=== PATIENT | female | born 1940 | race Two or more races ===

== ENCOUNTER → 2017-07-20 | Outpatient (CLI) | payer MEDICARE, OTHER ==
[~2017-07-20] MED LIST: LUTEIN; MONT10T; MULVITMINF; OMEP20ER; [UNRECOGNIZED DRUG - OTHER]; [UNRECOGNIZED DRUG - OTHER]
== END ==
LOC: LAB EV 09:44 → LAB SHORT 09:44
DX: N39.0 Urinary tract infection, site not specified (principal)
CPT/HCPCS: 87086

== ENCOUNTER → 2017-08-06 | Outpatient (CLI) | payer MEDICARE, OTHER | LOC: LAB SHORT 17:48 → LAB 17:48 | DX: N39.0 Urinary tract infection, site not specified (principal) | CPT/HCPCS: 87086 ==

== ENCOUNTER → 2017-10-29 | Outpatient (CLI) | payer MEDICARE, OTHER | END | disposition home or self-care (01) | LOC: LAB SRC 16:05 → LAB SHORT 16:05 | DX: N39.0 Urinary tract infection, site not specified (principal); M22.41 Chondromalacia patellae, right knee; R39.14 Feeling of incomplete bladder emptying | CPT/HCPCS: 87086 ==

== ENCOUNTER → 2017-11-09 | Outpatient (CLI) | payer MEDICARE, OTHER | LOC: LAB 17:49 → LAB SHORT 17:49 | DX: N39.0 Urinary tract infection, site not specified (principal); R35.0 Frequency of micturition; R39.14 Feeling of incomplete bladder emptying | CPT/HCPCS: 87077; 87086; 87186 ==

== ENCOUNTER → 2018-06-11 | Outpatient (CLI) | payer MEDICARE, OTHER ==
[~2018-06-11] MED LIST changes: +IRBE75; +MERIBIN5 MG; +OXYB5; +VOLTAREN100 GM
== END | disposition home or self-care (01) ==
LOC: LAB EV 11:18 → LAB SHORT 11:18
DX: N39.0 Urinary tract infection, site not specified (principal)
CPT/HCPCS: 87077; 87086; 87186

== ENCOUNTER → 2018-07-26 | Outpatient (CLI) | payer MEDICARE, OTHER ==
[~2018-07-26] MED LIST changes: +ASPI325 PO; +ASPI81CH PO; +ATOR40TA PO; +AZO CRANBERRY1 EAC1 PO; +Ativan0.5 MG PO; +BIOTIN5000 MCG PO; +CALCIUM CITRAT1 EAC6 PO; +CONEST.625 PO; +Chromium Pico400 MCG PO; +Colace100 MG PO; +Echinacea400 MG PO; +FISH OIL 1,2001 EACH PO; +GINKGO60 MG PO; +GLUCOSAMINE CH1 EAC1 PO; +Garlic1 EAC1 PO; +HAIR SKIN NAIL1 EACH PO; -IRBE75; +IRBE75 PO; +LIDO5TO TOP; +LUTEIN20 MG PO; -MULVITMINF; +Multivitamin1 EAC2 PO; -OMEP20ER; +OMEPRAZOLE20 MG PO; -OXYB5; +Oxybutynin Chlor5 M1 PO; +PAPAYA ENZYME1 EACH PO; +TURMERIC 500 M1 EACH PO; +VITAMIN B12-FO1 EACH PO; +VITAMIN D31000 UNI2 PO; -VOLTAREN100 GM; +VOLTAREN100 GM TOP; +Zocor20 MG PO
== END | disposition home or self-care (01) ==
LOC: LAB EV 12:16 → LAB SHORT 12:16
DX: N39.0 Urinary tract infection, site not specified (principal)
CPT/HCPCS: 87077; 87086; 87186

== ENCOUNTER 2018-08-03 13:48 | Observation (INO) | payer MEDICARE, OTHER ==
[~2018-08-03] VITALS: Ht 162.6 cm; Wt 85.0 kg
[~2018-08-03 13:48] MED LIST changes: -ASPI325 PO; -ASPI81CH PO; -ATOR40TA PO; -AZO CRANBERRY1 EAC1 PO; -Ativan0.5 MG PO; -BIOTIN5000 MCG PO; -CALCIUM CITRAT1 EAC6 PO; -CONEST.625 PO; -Chromium Pico400 MCG PO; -Colace100 MG PO; -Echinacea400 MG PO; -FISH OIL 1,2001 EACH PO; -GINKGO60 MG PO; -GLUCOSAMINE CH1 EAC1 PO; -Garlic1 EAC1 PO; -HAIR SKIN NAIL1 EACH PO; -LIDO5TO TOP; -LUTEIN20 MG PO; -PAPAYA ENZYME1 EACH PO; -TURMERIC 500 M1 EACH PO; -VITAMIN B12-FO1 EACH PO; -VITAMIN D31000 UNI2 PO; -Zocor20 MG PO
[2018-08-03 14:41] LABS: BASOPHILS ABSOLUTE AUTO 0.03 K/mm3 (0.00-0.23); BASOPHILS PERCENT AUTO 1 % (0-2); EOSINOPHILS ABSOLUTE AUTO 0.07 K/mm3 (0.00-0.68); EOSINOPHILS PERCENT AUTO 1 % (0-6); Hematocrit 36.6 % (33.0-51.0); Hemoglobin 12.2 g/dL (11.5-16.0); IMMATURE GRAN ABSOLUTE AUTO 0.02 K/mm3 (0.00-0.10); IMMATURE GRAN PERCENT AUTO 0 % (0-1); LYMPHOCYTES ABSOLUTE AUTO 1.96 K/mm3 (0.84-5.20); LYMPHOCYTES PERCENT AUTO 35 % (21-46); MONOCYTES PERCENT AUTO 9 % (4-13); Mean Corpuscular HGB 29.7 pg (26.0-34.0); Mean Corpuscular HGB Conc 33.3 g/dL (31.5-36.5); Mean Corpuscular Volume 89 fL (80-100); NEUTROPHILS ABSOLUTE AUTO 3.06 K/mm3 (1.96-9.15); NEUTROPHILS PERCENT AUTO 54 % (41-73); Platelet Count 279 K/mm3 (150-400); RDW Coefficient Variation 12.9 % (11.7-14.2); RDW Standard Deviation 42.3 fL (35.1-46.3); Red Blood Cell Count 4.11 M/mm3 (3.80-5.20); White Blood Cell Count 5.64 K/mm3 (4.00-11.30)
[2018-08-03 15:06] LABS: Alanine Aminotransfer (ALT/SGP 13 U/L (12-78); Albumin, Blood 3.5 g/dL (3.4-5.0); Alk Phos 67 U/L (50-136); Anion Gap 7 mmol/L (6-16); Aspartate Aminotrans (AST/SGOT 19 U/L (12-37); Bilirubin, Total 0.5 mg/dL (0.1-1.0); Blood Urea Nitrogen 9 mg/dL (8-24); Bun/Creatinine Ratio 15.5 (12.0-20.0); CO2, Blood 25 mmol/L (21-32); Chloride, Blood 98 mmol/L (98-108); Creatinine, Blood 0.58 mg/dL (0.40-1.00); Globulin, Blood 3.5 g/dL (2.2-4.0); Glomerular Filtration Rate >60 (60-); Glucose, Blood 117 mg/dL (70-99); Potassium, Blood 3.5 mmol/L (3.5-5.5); Sodium, Blood 130 mmol/L (136-145)
[2018-08-03 16:46] LABS: Source, Urine Clean Catch
[2018-08-03 17:04] LABS: Bilirubin, Urine Neg (Neg); Blood, Urine Neg (Neg); Glucose Qualitative, Urine Neg (Neg); Ketones, Urine Neg (Neg); Leukocyte Esterase, Urine Neg (Neg); Nitrite, Urine Neg (Neg); Protein, Urine Neg (Neg); Urobilinogen, Urine NORM (Normal)
[2018-08-03 17:09] LABS: Appearance, Urine Clear (Clear); Color, Urine Yellow (P-Yellow)
[2018-08-03 17:17] LABS: U Amphetamine Screen Not Detected; U Barbituate Screen Not Detected; U Benzodiazapine Screen Not Detected; U Buprenorphine Screen Not Detected; U Cannabinoids Screen Not Detected; U Cocaine Screen Not Detected; U Methadone Screen Not Detected; U Methamphetamine Screen Not Detected; U Opiates Screen Not Detected; U Oxycodone Screen Not Detected; U Phencyclidine Screen Not Detected; U Propoxyphene Screen Not Detected
[2018-08-03 18:19] LABS: Thyroid Stimulating Hormone 1.92 uIU/mL (0.360-4.800)
[2018-08-04 05:57] LABS: Anion Gap 6 mmol/L (6-16); Blood Urea Nitrogen 11 mg/dL (8-24); Bun/Creatinine Ratio 18.9 (12.0-20.0); CHOL/HDL RATIO 2.9; CO2, Blood 27 mmol/L (21-32); Calcium, Blood 8.5 mg/dL (8.5-10.1); Chloride, Blood 104 mmol/L (98-108); Cholesterol 233 mg/dL (50-200); Creatinine, Blood 0.58 mg/dL (0.40-1.00); Glomerular Filtration Rate >60 (60-); Glucose, Blood 91 mg/dL (70-99); HDL Cholesterol 79 mg/dL (>39); LDL/HDL RATIO 1.8; Low Density Lipoprotein Chol 141 mg/dL (0-110); Potassium, Blood 3.9 mmol/L (3.5-5.5); Sodium, Blood 137 mmol/L (136-145); Triglycerides 63 mg/dL (30-160); Very Low Density Lipoprot Chol 12 mg/dL (6-32)
--- NOTE | 2018-08-04 06:03 | NUR ---
SHIFT SUMMARY PT ADMITTED FOR TIA SYMPTOMS. PT FAMILY PRESENT UPON ARRIVAL TO UNIT. PT ALERT AND ORIENTED, DENIES ANY SYMPTOMS UPON ARRIVAL. STATES NUMBNESS ON LEFT SIDE IS NOW GONE. NEURO CHECKS INTACT. TELEMETRY ON AND READS NSR WITH 1ST DEGREE BLOCK. PT UP TO BSC WITH SBA, CONTINENT OF BOWEL AND BLADDER. PT HAS MACULAR DEGENERATION WHICH MAKES IT DIFFICULT FOR HER TO SEE THINGS. NO ACUTE EVENTS NOTED DURING THE NIGHT, WILL CONTINUE TO MONITOR.
--- NOTE | 2018-08-04 09:00 | NUR ---
PT A/O. PLEASANT, TALKING, JOKING. HUSB AND GRAND-DAUGHTER IN ROOM. DENIES PAIN. NEURO CHECKS: GIPS =, LISA, ARM STRENGTH =, ALTHOUGH ARMS PRESENT WEAK. PT STATES NORMAL. LEGS = STRENGTH. NO FACIAL DROOP NOTED, H/R REG, NO MURMER NOTED. PER TELE: NSR AT 77. LUNGS CLEAR, REWP EASY, UNLABORED. ON R.A. BT X4 LAST BM YEST. NORMAL. VOIDS PER BATHROOM. SBA. BED IN LOW POSITION, CALL LITE IN REAC, CALLS APPROP
--- NOTE | 2018-08-04 16:25 | NUR ---
CALLED DR KIDD RE BP. 161/76. PT TAKES AVAPRO 75 MG PO DAILY AT HOME. NONE ON EMAR. LMTC
--- NOTE | 2018-08-04 16:37 | NUR ---
DR DELROY YANG. ORDERS GIVEN. WILL DC TODAY
[2018-08-04] MEDS ORDERED: Zocor20 MG PO (17:34)
[2018-08-04] MEDS ORDERED: ASPI325 PO (17:34)
--- NOTE | 2018-08-04 18:18 | NUR ---
DISCHARGE REVIEWED WITH PT AND . IV PULLED INTACT. TELE REMOVED AND SENT TO PCU. MEDS FAXED TO [facility]. PT VERBALIZED UNDERSTANDING MEDS AND INSTRUCTIONS. PT WHEELED TO DOOR BY VALARIE REGALADO.
[2018-11-02] MEDS ORDERED: VITAMIN B12-FO1 EACH PO (14:25)
[2018-11-02] MEDS ORDERED: Echinacea400 MG PO (14:25)
[2018-11-02] MEDS ORDERED: VITAMIN D31000 UNI2 PO (14:26)
[2018-11-02] MEDS ORDERED: PAPAYA ENZYME1 EACH PO (14:26)
[2018-11-02] MEDS ORDERED: CONEST.625 PO (14:26)
[2018-11-02] MEDS ORDERED: HAIR SKIN NAIL1 EACH PO (14:26)
[2018-11-02] MEDS ORDERED: FISH OIL 1,2001 EACH PO (14:27)
[2018-11-02] MEDS ORDERED: BIOTIN5000 MCG PO (14:27)
[2018-11-02] MEDS ORDERED: LIDO5TO TOP (14:27)
[2018-11-02] MEDS ORDERED: AZO CRANBERRY1 EAC1 PO (14:28)
[2018-11-02] MEDS ORDERED: Chromium Pico400 MCG PO (14:28)
[2018-11-02] MEDS ORDERED: Garlic1 EAC1 PO (14:29)
[2018-11-02] MEDS ORDERED: LUTEIN20 MG PO (14:29)
[2018-11-02] MEDS ORDERED: GINKGO60 MG PO (14:29)
[2018-11-02] MEDS ORDERED: TURMERIC 500 M1 EACH PO (14:29)
[2018-11-02] MEDS ORDERED: CALCIUM CITRAT1 EAC6 PO (14:30)
[2018-11-02] MEDS ORDERED: GLUCOSAMINE CH1 EAC1 PO (14:31)
[2018-11-02] MEDS ORDERED: Colace100 MG PO (14:32)
== END 2018-08-04 18:31 | disposition home or self-care (01) ==
LOC: ER 13:48 → MEDS 13:49 → ENPENDDIS 08-04 17:10 → MEDS 08-04 18:31
PROVIDERS: Emergency Medicine; Nurse Practitioner Acute Care; ADMIT Internal Medicine
DX: R29.898 Other symptoms and signs involving the musculoskeletal system (principal); R20.0 Anesthesia of skin; E87.1 Hypo-osmolality and hyponatremia; I10 Essential (primary) hypertension; M19.90 Unspecified osteoarthritis, unspecified site; K21.9 Gastro-esophageal reflux disease without esophagitis; I73.9 Peripheral vascular disease, unspecified; E78.5 Hyperlipidemia, unspecified; M17.11 Unilateral primary osteoarthritis, right knee; Z88.5 Allergy status to narcotic agent; Z79.899 Other long term (current) drug therapy; Z79.82 Long term (current) use of aspirin
CPT/HCPCS: 36415; 70450; 70496; 70498; 80048; 80053; 80061; 81003; 82607; 83735; 84443; 85025; 93005; 93010; 93306; 96361; 96372; 96374-59; 97162; 97165; 99285-25; G0378; J1650; J2060; J7030; Q9967

== ENCOUNTER 2018-08-06 07:51 | Emergency (ER) | payer MEDICARE, OTHER ==
[~2018-08-06] VITALS: Ht 160 cm; Wt 81.2 kg
[~2018-08-06 07:51] MED LIST changes: +ASPI325 PO; +Zocor20 MG PO
[2018-08-06] MEDS ORDERED: Ativan0.5 MG PO (08:43)
[2018-11-02] MEDS ORDERED: Echinacea400 MG PO (14:25)
[2018-11-02] MEDS ORDERED: VITAMIN B12-FO1 EACH PO (14:25)
[2018-11-02] MEDS ORDERED: VITAMIN D31000 UNI2 PO (14:26)
[2018-11-02] MEDS ORDERED: HAIR SKIN NAIL1 EACH PO (14:26)
[2018-11-02] MEDS ORDERED: PAPAYA ENZYME1 EACH PO (14:26)
[2018-11-02] MEDS ORDERED: CONEST.625 PO (14:26)
[2018-11-02] MEDS ORDERED: LIDO5TO TOP (14:27)
[2018-11-02] MEDS ORDERED: FISH OIL 1,2001 EACH PO (14:27)
[2018-11-02] MEDS ORDERED: BIOTIN5000 MCG PO (14:27)
[2018-11-02] MEDS ORDERED: AZO CRANBERRY1 EAC1 PO (14:28)
[2018-11-02] MEDS ORDERED: Chromium Pico400 MCG PO (14:28)
[2018-11-02] MEDS ORDERED: Garlic1 EAC1 PO (14:29)
[2018-11-02] MEDS ORDERED: GINKGO60 MG PO (14:29)
[2018-11-02] MEDS ORDERED: TURMERIC 500 M1 EACH PO (14:29)
[2018-11-02] MEDS ORDERED: LUTEIN20 MG PO (14:29)
[2018-11-02] MEDS ORDERED: CALCIUM CITRAT1 EAC6 PO (14:30)
[2018-11-02] MEDS ORDERED: GLUCOSAMINE CH1 EAC1 PO (14:31)
[2018-11-02] MEDS ORDERED: Colace100 MG PO (14:32)
== END 2018-08-06 10:44 | disposition home or self-care (01) ==
LOC: ER 07:51
DX: F41.9 Anxiety disorder, unspecified (principal); Z88.5 Allergy status to narcotic agent; Z79.899 Other long term (current) drug therapy; Z79.82 Long term (current) use of aspirin; E78.5 Hyperlipidemia, unspecified; I10 Essential (primary) hypertension; K21.9 Gastro-esophageal reflux disease without esophagitis
CPT/HCPCS: 36415; 93005; 93010; 99283-25

== ENCOUNTER → 2018-08-25 | Outpatient (CLI) | payer MEDICARE, OTHER ==
[~2018-08-25] MED LIST changes: +ASPI81CH PO; +ATOR40TA PO; +AZO CRANBERRY1 EAC1 PO; +Ativan0.5 MG PO; +BIOTIN5000 MCG PO; +CALCIUM CITRAT1 EAC6 PO; +CONEST.625 PO; +Chromium Pico400 MCG PO; +Colace100 MG PO; +Echinacea400 MG PO; +FISH OIL 1,2001 EACH PO; +GINKGO60 MG PO; +GLUCOSAMINE CH1 EAC1 PO; +Garlic1 EAC1 PO; +HAIR SKIN NAIL1 EACH PO; +LIDO5TO TOP; +LUTEIN20 MG PO; +PAPAYA ENZYME1 EACH PO; +TURMERIC 500 M1 EACH PO; +VITAMIN B12-FO1 EACH PO; +VITAMIN D31000 UNI2 PO
[2018-08-25 19:14] LABS: Source, Urine Clean Catch
[2018-08-25 19:21] LABS: Bilirubin, Urine Neg (Neg); Blood, Urine Neg (Neg); Glucose Qualitative, Urine Neg (Neg); Ketones, Urine Neg (Neg); Leukocyte Esterase, Urine 3+ (Neg); Nitrite, Urine Neg (Neg); Protein, Urine Neg (Neg); Urobilinogen, Urine NORM (Normal)
[2018-08-25 19:44] LABS: Appearance, Urine Hazy (Clear); Color, Urine Pale Yellow (P-Yellow)
[2018-08-25 19:45] LABS: Red Blood Cells, Urine 0-2 /hpf (0-2); Squamous Epithelial Cells Few /hpf (Few)
[2018-08-25 19:46] LABS: Bacteria Few /hpf
== END | disposition home or self-care (01) ==
LOC: LAB 17:00 → LAB SHORT 17:00
PROVIDERS: Registered Nurse
DX: I69.354 Hemiplegia and hemiparesis following cerebral infarction affecting left non-dominant side (principal); K21.9 Gastro-esophageal reflux disease without esophagitis; M19.90 Unspecified osteoarthritis, unspecified site; H35.30 Unspecified macular degeneration; I10 Essential (primary) hypertension; Z79.82 Long term (current) use of aspirin
CPT/HCPCS: 81001; 87086

== ENCOUNTER → 2018-08-27 | Outpatient (CLI) | payer MEDICARE, OTHER ==
[2018-08-27 13:14] LABS: Bilirubin, Urine Neg (Neg); Blood, Urine 4+ (Neg); Glucose Qualitative, Urine Neg (Neg); Ketones, Urine Neg (Neg); Leukocyte Esterase, Urine 3+ (Neg); Nitrite, Urine Neg (Neg); Protein, Urine 1+ (Neg); Specific Gravity, Urine 1.015 (1.003-1.022); Urobilinogen, Urine NORM (Normal)
[2018-08-27 14:21] LABS: Appearance, Urine Hazy (Clear); Color, Urine Yellow (P-Yellow)
[2018-08-27 14:22] LABS: Bacteria Mod /hpf; Squamous Epithelial Cells Not Seen /hpf (Few); White Blood Cells, Urine TNTC /hpf (0-5)
== END | disposition home or self-care (01) ==
LOC: LAB SHORT 11:33 → LAB SRC 11:33
PROVIDERS: Registered Nurse
DX: N39.0 Urinary tract infection, site not specified (principal)
CPT/HCPCS: 81001; 87086

== ENCOUNTER 2018-09-03 10:14 | Emergency (ER) | payer MEDICARE, OTHER ==
[~2018-09-03] VITALS: Ht 162.6 cm; Wt 81.7 kg
[~2018-09-03 10:14] MED LIST changes: -ASPI81CH PO; -ATOR40TA PO; -AZO CRANBERRY1 EAC1 PO; -BIOTIN5000 MCG PO; -CALCIUM CITRAT1 EAC6 PO; -CONEST.625 PO; -Chromium Pico400 MCG PO; -Colace100 MG PO; -Echinacea400 MG PO; -FISH OIL 1,2001 EACH PO; -GINKGO60 MG PO; -GLUCOSAMINE CH1 EAC1 PO; -Garlic1 EAC1 PO; -HAIR SKIN NAIL1 EACH PO; -LIDO5TO TOP; -LUTEIN20 MG PO; -PAPAYA ENZYME1 EACH PO; -TURMERIC 500 M1 EACH PO; -VITAMIN B12-FO1 EACH PO; -VITAMIN D31000 UNI2 PO
[2018-09-03 11:10] LABS: Source, Urine Catheter
[2018-09-03 11:13] LABS: Bilirubin, Urine Neg (Neg); Blood, Urine Neg (Neg); Glucose Qualitative, Urine Neg (Neg); Ketones, Urine Neg (Neg); Leukocyte Esterase, Urine Neg (Neg); Nitrite, Urine Neg (Neg); Protein, Urine Neg (Neg); Urobilinogen, Urine NORM (Normal)
[2018-09-03 11:17] LABS: Appearance, Urine Clear (Clear); Color, Urine Yellow (P-Yellow)
[2018-09-03 11:29] LABS: BASOPHILS ABSOLUTE AUTO 0.04 K/mm3 (0.00-0.23); BASOPHILS PERCENT AUTO 1 % (0-2); EOSINOPHILS ABSOLUTE AUTO 0.06 K/mm3 (0.00-0.68); EOSINOPHILS PERCENT AUTO 1 % (0-6); Hematocrit 38.6 % (33.0-51.0); IMMATURE GRAN ABSOLUTE AUTO 0.01 K/mm3 (0.00-0.10); IMMATURE GRAN PERCENT AUTO 0 % (0-1); LYMPHOCYTES ABSOLUTE AUTO 1.72 K/mm3 (0.84-5.20); LYMPHOCYTES PERCENT AUTO 24 % (21-46); MONOCYTES ABSOLUTE AUTO 0.54 K/mm3 (0.16-1.47); MONOCYTES PERCENT AUTO 8 % (4-13); Mean Corpuscular HGB 30.2 pg (26.0-34.0); Mean Corpuscular HGB Conc 33.7 g/dL (31.5-36.5); Mean Corpuscular Volume 90 fL (80-100); NEUTROPHILS ABSOLUTE AUTO 4.72 K/mm3 (1.96-9.15); NEUTROPHILS PERCENT AUTO 67 % (41-73); Platelet Count 260 K/mm3 (150-400); RDW Coefficient Variation 12.5 % (11.7-14.2); RDW Standard Deviation 41.6 fL (35.1-46.3); Red Blood Cell Count 4.31 M/mm3 (3.80-5.20); White Blood Cell Count 7.09 K/mm3 (4.00-11.30)
[2018-09-03 11:50] LABS: Alanine Aminotransfer (ALT/SGP 25 U/L (12-78); Albumin, Blood 3.5 g/dL (3.4-5.0); Albumin/Globulin Ratio 0.9 (0.8-1.8); Alk Phos 81 U/L (50-136); Anion Gap 9 mmol/L (6-16); Aspartate Aminotrans (AST/SGOT 14 U/L (12-37); Bilirubin, Total 0.3 mg/dL (0.1-1.0); Blood Urea Nitrogen 12 mg/dL (8-24); Bun/Creatinine Ratio 21.4 (12.0-20.0); CO2, Blood 25 mmol/L (21-32); Calcium, Blood 9.2 mg/dL (8.5-10.1); Chloride, Blood 101 mmol/L (98-108); Creatinine, Blood 0.56 mg/dL (0.40-1.00); Globulin, Blood 3.9 g/dL (2.2-4.0); Glomerular Filtration Rate >60 (60-); Glucose, Blood 107 mg/dL (70-99); Potassium, Blood 3.5 mmol/L (3.5-5.5); Sodium, Blood 135 mmol/L (136-145); Total Protein, Blood 7.4 g/dL (6.4-8.2)
[2018-11-02] MEDS ORDERED: VITAMIN B12-FO1 EACH PO (14:25)
[2018-11-02] MEDS ORDERED: Echinacea400 MG PO (14:25)
[2018-11-02] MEDS ORDERED: VITAMIN D31000 UNI2 PO (14:26)
[2018-11-02] MEDS ORDERED: HAIR SKIN NAIL1 EACH PO (14:26)
[2018-11-02] MEDS ORDERED: CONEST.625 PO (14:26)
[2018-11-02] MEDS ORDERED: PAPAYA ENZYME1 EACH PO (14:26)
[2018-11-02] MEDS ORDERED: FISH OIL 1,2001 EACH PO (14:27)
[2018-11-02] MEDS ORDERED: BIOTIN5000 MCG PO (14:27)
[2018-11-02] MEDS ORDERED: LIDO5TO TOP (14:27)
[2018-11-02] MEDS ORDERED: AZO CRANBERRY1 EAC1 PO (14:28)
[2018-11-02] MEDS ORDERED: Chromium Pico400 MCG PO (14:28)
[2018-11-02] MEDS ORDERED: GINKGO60 MG PO (14:29)
[2018-11-02] MEDS ORDERED: LUTEIN20 MG PO (14:29)
[2018-11-02] MEDS ORDERED: TURMERIC 500 M1 EACH PO (14:29)
[2018-11-02] MEDS ORDERED: Garlic1 EAC1 PO (14:29)
[2018-11-02] MEDS ORDERED: CALCIUM CITRAT1 EAC6 PO (14:30)
[2018-11-02] MEDS ORDERED: GLUCOSAMINE CH1 EAC1 PO (14:31)
[2018-11-02] MEDS ORDERED: Colace100 MG PO (14:32)
== END 2018-09-03 13:08 | disposition home or self-care (01) ==
LOC: ER 10:14
PROVIDERS: Internal Medicine
DX: F43.9 Reaction to severe stress, unspecified (principal); Z88.5 Allergy status to narcotic agent; Z79.899 Other long term (current) drug therapy; Z79.82 Long term (current) use of aspirin; E78.5 Hyperlipidemia, unspecified; I10 Essential (primary) hypertension; K21.9 Gastro-esophageal reflux disease without esophagitis; Z87.891 Personal history of nicotine dependence
CPT/HCPCS: 36415; 80053; 81003; 85025; 99283

== ENCOUNTER 2018-11-04 07:41 | Day surgery (SDC) | payer MEDICARE, OTHER ==
[~2018-11-04] VITALS: Ht 162.6 cm; Wt 82.3 kg
[~2018-11-04 07:41] MED LIST changes: +AZO CRANBERRY1 EAC1 PO; +BIOTIN5000 MCG PO; +CALCIUM CITRAT1 EAC6 PO; +CONEST.625 PO; +Chromium Pico400 MCG PO; +Colace100 MG PO; +Echinacea400 MG PO; +FISH OIL 1,2001 EACH PO; +GINKGO60 MG PO; +GLUCOSAMINE CH1 EAC1 PO; +Garlic1 EAC1 PO; +HAIR SKIN NAIL1 EACH PO; +LIDO5TO TOP; +LUTEIN20 MG PO; +PAPAYA ENZYME1 EACH PO; +TURMERIC 500 M1 EACH PO; +VITAMIN B12-FO1 EACH PO; +VITAMIN D31000 UNI2 PO
[2018-11-04] MEDS ORDERED: ASPI81CH PO (08:59)
[2018-11-04] MEDS ORDERED: ATOR40TA PO (08:59)
--- NOTE | 2018-11-04 10:43 | NUR ---
PT RLE WRAPPED AND COMPRESSION SOCK ON. PT AMBULATES TO RESTROOM WITH STEADY GAIT. PT DENIES PAIN, AT BEDSIDE TO DISCUSS DISCHARGE INSTRUCTIONS. PT AND VERBALIZED UNDERSTANDING OF D/C INSTRUCTIONS. IV REMOVED FROM RAC WITH CATH INTACT, PRESSURE DRESSING APPLIED. VSS. PT ENCOURAGED TO FOLLOW UP OR CALL DOCTORS OFFICE IF NEEDED. PT TAKEN OUT TO PRIVATE VEHICLE VIA W/C WITH NADN.
== END 2018-11-04 14:28 | disposition home or self-care (01) ==
LOC: MHTC 07:41
DX: I87.2 Venous insufficiency (chronic) (peripheral) (principal); I10 Essential (primary) hypertension; E78.5 Hyperlipidemia, unspecified; J45.909 Unspecified asthma, uncomplicated; Z79.899 Other long term (current) drug therapy; Z87.891 Personal history of nicotine dependence; Z88.5 Allergy status to narcotic agent; Z88.1 Allergy status to other antibiotic agents
CPT/HCPCS: 36465; 36466; 36475; 99152; 99153; C1769; C1894; J1644; J2250; J3010; J7040

== ENCOUNTER → 2019-01-20 | Outpatient (CLI) | payer MEDICARE, OTHER ==
[~2019-01-20] MED LIST changes: +ASPI81CH PO; +ATOR40TA PO
== END | disposition home or self-care (01) ==
LOC: LAB SHORT 11:09 → LAB EV 11:09
DX: N39.0 Urinary tract infection, site not specified (principal)
CPT/HCPCS: 87086

== ENCOUNTER → 2019-02-28 | Outpatient (CLI) | payer MEDICARE, OTHER | END | disposition home or self-care (01) | LOC: LAB EV 10:07 → LAB SHORT 10:07 | DX: N39.0 Urinary tract infection, site not specified (principal) | CPT/HCPCS: 87086 ==

== ENCOUNTER → 2019-04-11 | Outpatient (CLI) | payer MEDICARE, OTHER | LOC: LAB SHORT 13:11 → LAB SRC 13:11 | DX: R30.0 Dysuria (principal); R35.0 Frequency of micturition | CPT/HCPCS: 87077; 87086; 87186 ==

== ENCOUNTER → 2019-06-04 | Outpatient (CLI) | payer MEDICARE, OTHER | END | disposition home or self-care (01) | LOC: LAB EV 17:03 → LAB SHORT 17:03 | DX: N39.0 Urinary tract infection, site not specified (principal) | CPT/HCPCS: 87077; 87086; 87186 ==

== ENCOUNTER → 2019-06-23 | Outpatient (CLI) | payer MEDICARE, OTHER | END | disposition home or self-care (01) | LOC: LAB 14:34 → LAB SHORT 14:34 | DX: R30.0 Dysuria (principal) | CPT/HCPCS: 87077; 87086; 87186 ==

== ENCOUNTER → 2019-07-10 | Outpatient (CLI) | payer MEDICARE, OTHER | LOC: LAB SHORT 13:24 → LAB EV 13:24 | DX: N39.0 Urinary tract infection, site not specified (principal) | CPT/HCPCS: 87077; 87086; 87186 ==

== ENCOUNTER → 2019-07-31 | Outpatient (CLI) | payer MEDICARE, OTHER | END | disposition home or self-care (01) | LOC: LAB EV 09:29 → LAB SHORT 09:29 | DX: N39.0 Urinary tract infection, site not specified (principal) | CPT/HCPCS: 87077; 87086; 87186 ==

== ENCOUNTER → 2019-08-11 | Outpatient (CLI) | payer MEDICARE, OTHER | END | disposition home or self-care (01) | LOC: LAB SHORT 10:37 → LAB EV 10:37 | DX: N39.0 Urinary tract infection, site not specified (principal) | CPT/HCPCS: 87077; 87086; 87186 ==

== ENCOUNTER → 2019-08-23 | Outpatient (CLI) | payer MEDICARE, OTHER | END | disposition home or self-care (01) | LOC: LAB EV 14:48 → LAB SHORT 14:48 | DX: N39.0 Urinary tract infection, site not specified (principal) | CPT/HCPCS: 87077; 87086; 87186 ==

== ENCOUNTER → 2019-09-02 | Outpatient (CLI) | payer MEDICARE, OTHER | LOC: LAB EV 10:14 → LAB SHORT 10:14 | DX: R30.9 Painful micturition, unspecified (principal) | CPT/HCPCS: 87086; 87210 ==

== ENCOUNTER 2019-10-31 08:23 | Day surgery (SDC) | payer MEDICARE, OTHER ==
[~2019-10-31] VITALS: Ht 172.7 cm; Wt 84.6 kg
[~2019-10-31 08:23] MED LIST changes: +ELIQUIS5 MG PO
[2019-10-31] MEDS ORDERED: IRBE75 (09:06)
--- NOTE | 2019-10-31 09:49 | NUR ---
10/31/19 0949 Anna Joseph PT DID NOT HOLD ELIQUIS FOR 2 DAYS PRIOR TO PROCEDURE INSTRUCTED BY DR. DUBON. SPOKE TO PT AND TO CLARIFY LAST DOSE. SPOKE WITH AND PT ABOUT NEED TO CANCEL PROCEDURE D/T BLEEDING RISK. ALSO SPOKE WITH DAUGHTER ABOUT CANCELLING PROCEDURE. IV REMOVED.
== END 2019-10-31 10:00 | disposition home or self-care (01) ==
LOC: ORSCSDS 08:23
DX: K21.9 Gastro-esophageal reflux disease without esophagitis (principal); R13.10 Dysphagia, unspecified; Z12.11 Encounter for screening for malignant neoplasm of colon; Z53.9 Procedure and treatment not carried out, unspecified reason
CPT/HCPCS: J2704; J7120

== ENCOUNTER 2019-11-18 13:04 | Observation (INO) | payer MEDICARE, OTHER ==
[~2019-11-18] VITALS: Ht 170.2 cm; Wt 84.4 kg
[~2019-11-18 13:04] MED LIST changes: -ATOR40TA PO; -ELIQUIS5 MG PO; +IRBE75; -IRBE75 PO
[2019-11-18] MEDS ORDERED: HYDCHL25 PO (13:29)
[2019-11-18 13:40] LABS: BASOPHILS ABSOLUTE AUTO 0.06 K/mm3 (0.00-0.23); BASOPHILS PERCENT AUTO 1 % (0-2); EOSINOPHILS ABSOLUTE AUTO 0.07 K/mm3 (0.00-0.68); EOSINOPHILS PERCENT AUTO 1 % (0-6); Hematocrit 38.6 % (33.0-51.0); Hemoglobin 13.2 g/dL (11.5-16.0); IMMATURE GRAN ABSOLUTE AUTO 0.01 K/mm3 (0.00-0.10); IMMATURE GRAN PERCENT AUTO 0 % (0-1); LYMPHOCYTES ABSOLUTE AUTO 2.15 K/mm3 (0.84-5.20); LYMPHOCYTES PERCENT AUTO 31 % (21-46); MONOCYTES ABSOLUTE AUTO 0.73 K/mm3 (0.16-1.47); MONOCYTES PERCENT AUTO 11 % (4-13); Mean Corpuscular HGB 29.9 pg (26.0-34.0); Mean Corpuscular HGB Conc 34.2 g/dL (31.5-36.5); Mean Corpuscular Volume 88 fL (80-100); Mean Platelet Volume 8.7 fL (9.1-12.4); NEUTROPHILS ABSOLUTE AUTO 3.86 K/mm3 (1.96-9.15); NEUTROPHILS PERCENT AUTO 56 % (41-73); Platelet Count 316 K/mm3 (150-400); RDW Coefficient Variation 12.5 % (11.7-14.2); RDW Standard Deviation 40.2 fL (35.1-46.3); Red Blood Cell Count 4.41 M/mm3 (3.80-5.20); White Blood Cell Count 6.88 K/mm3 (4.00-11.30)
[2019-11-18 14:06] LABS: Alanine Aminotransfer (ALT/SGP 25 U/L (12-78); Albumin, Blood 3.9 g/dL (3.4-5.0); Alk Phos 89 U/L (50-136); Anion Gap 8 mmol/L (6-16); Aspartate Aminotrans (AST/SGOT 24 U/L (12-37); Bilirubin, Total 0.4 mg/dL (0.1-1.0); Blood Urea Nitrogen 9 mg/dL (8-24); Bun/Creatinine Ratio 14.6 (12.0-20.0); CO2, Blood 25 mmol/L (21-32); Calcium, Blood 9.6 mg/dL (8.5-10.1); Chloride, Blood 99 mmol/L (98-108); Creatinine, Blood 0.62 mg/dL (0.40-1.00); Globulin, Blood 3.9 g/dL (2.2-4.0); Glomerular Filtration Rate >60 (60-); Glucose, Blood 120 mg/dL (70-99); Potassium, Blood 3.7 mmol/L (3.5-5.5); Sodium, Blood 132 mmol/L (136-145); Total Protein, Blood 7.8 g/dL (6.4-8.2); Troponin I <0.015 ng/mL (0.000-0.040)
[2019-11-18] MEDS ORDERED: ATOR40TA PO (17:44)
[2019-11-18] MEDS ORDERED: NYSTATIN15 GM TOP (17:45)
[2019-11-18] MEDS ORDERED: ELIQUIS5 MG PO (17:45)
[2019-11-18] MEDS ORDERED: Nitrofurantoin100 M1 PO (17:47)
[2019-11-18] MEDS ORDERED: IRBESARTAN-HCT1 EAC3 PO (17:48)
[2019-11-18] MEDS ORDERED: OMEPRAZOLE MAGN20 MG PO (21:35)
[2019-11-19 03:43] LABS: BASOPHILS ABSOLUTE AUTO 0.06 K/mm3 (0.00-0.23); BASOPHILS PERCENT AUTO 1 % (0-2); EOSINOPHILS ABSOLUTE AUTO 0.19 K/mm3 (0.00-0.68); EOSINOPHILS PERCENT AUTO 3 % (0-6); Hemoglobin 12.7 g/dL (11.5-16.0); IMMATURE GRAN ABSOLUTE AUTO 0.01 K/mm3 (0.00-0.10); IMMATURE GRAN PERCENT AUTO 0 % (0-1); LYMPHOCYTES ABSOLUTE AUTO 1.69 K/mm3 (0.84-5.20); LYMPHOCYTES PERCENT AUTO 31 % (21-46); MONOCYTES ABSOLUTE AUTO 0.67 K/mm3 (0.16-1.47); MONOCYTES PERCENT AUTO 12 % (4-13); Mean Corpuscular HGB 29.6 pg (26.0-34.0); Mean Corpuscular HGB Conc 33.4 g/dL (31.5-36.5); Mean Corpuscular Volume 89 fL (80-100); Mean Platelet Volume 8.8 fL (9.1-12.4); NEUTROPHILS ABSOLUTE AUTO 2.93 K/mm3 (1.96-9.15); NEUTROPHILS PERCENT AUTO 53 % (41-73); Platelet Count 273 K/mm3 (150-400); RDW Coefficient Variation 12.8 % (11.7-14.2); RDW Standard Deviation 41.5 fL (35.1-46.3); Red Blood Cell Count 4.29 M/mm3 (3.80-5.20); White Blood Cell Count 5.55 K/mm3 (4.00-11.30)
[2019-11-19 03:58] LABS: Anion Gap 6 mmol/L (6-16); Blood Urea Nitrogen 12 mg/dL (8-24); Bun/Creatinine Ratio 23.8 (12.0-20.0); CO2, Blood 27 mmol/L (21-32); Chloride, Blood 101 mmol/L (98-108); Glomerular Filtration Rate >60 (60-); Glucose, Blood 106 mg/dL (70-99); Sodium, Blood 134 mmol/L (136-145)
--- NOTE | 2019-11-19 06:08 | NUR ---
SHIFT SUMMARY PT ARRIVED TO THE UNIT AOUT 2044, VITALS STABLE WITH BP FALLING 157 TO 135 SYSTOLIC THROUGHOUT THE SHIFT. HR STABLE 75-85 BPM. PT SHOWED NO FACIAL DROOPING, ARM DRIFT OR HEMIPLEGIA. PT STATED HAVING NO SIMILAR CVA SYMPTOMS LIKE THE LAST CVA SHE HAD. ON ROOM AIR WITH O2 SATS IN THE HIGH 90'S. PT ASLEEP MOST OF THE NIGHT WITH NO COMPLAINTS OF PAIN. THE BED IS IN LOW POSITION WITH CALL LIGHT WITHIN REACH AND WILL CONTINUE TO MONITOR UNTIL SHIFT CHANGE.
--- NOTE | 2019-11-19 12:32 | NUR ---
PT RETURNED TO ROOM VIA WHEELCHAIR FROM MRI. STATUS WAS CHANGED TO MEDICAL. CHARGE NOTIFIED, CALL LIGHT IN REACH.
--- NOTE | 2019-11-19 16:02 | NUR ---
pt will be transfered to medical floor via wheelchair with loan operations specialist in attendence and all her belongings. report given to Desire REGALADO.
--- NOTE | 2019-11-19 18:04 | NUR ---
pt had an uneventful day, no changes in condition, she is medical status, did have a shower, call light in reach.
[2019-11-20 03:42] LABS: BASOPHILS ABSOLUTE AUTO 0.07 K/mm3 (0.00-0.23); BASOPHILS PERCENT AUTO 1 % (0-2); EOSINOPHILS ABSOLUTE AUTO 0.21 K/mm3 (0.00-0.68); EOSINOPHILS PERCENT AUTO 3 % (0-6); Hematocrit 39.2 % (33.0-51.0); IMMATURE GRAN ABSOLUTE AUTO 0.02 K/mm3 (0.00-0.10); IMMATURE GRAN PERCENT AUTO 0 % (0-1); LYMPHOCYTES ABSOLUTE AUTO 1.75 K/mm3 (0.84-5.20); LYMPHOCYTES PERCENT AUTO 28 % (21-46); MONOCYTES ABSOLUTE AUTO 0.59 K/mm3 (0.16-1.47); MONOCYTES PERCENT AUTO 9 % (4-13); Mean Corpuscular HGB 29.7 pg (26.0-34.0); Mean Corpuscular HGB Conc 33.2 g/dL (31.5-36.5); Mean Corpuscular Volume 90 fL (80-100); Mean Platelet Volume 8.8 fL (9.1-12.4); NEUTROPHILS ABSOLUTE AUTO 3.61 K/mm3 (1.96-9.15); NEUTROPHILS PERCENT AUTO 58 % (41-73); Platelet Count 301 K/mm3 (150-400); RDW Coefficient Variation 12.9 % (11.7-14.2); RDW Standard Deviation 42.6 fL (35.1-46.3); Red Blood Cell Count 4.38 M/mm3 (3.80-5.20); White Blood Cell Count 6.25 K/mm3 (4.00-11.30)
[2019-11-20 04:13] LABS: Alanine Aminotransfer (ALT/SGP 27 U/L (12-78); Albumin, Blood 3.5 g/dL (3.4-5.0); Albumin/Globulin Ratio 0.9 (0.8-1.8); Alk Phos 90 U/L (50-136); Anion Gap 3 mmol/L (6-16); Aspartate Aminotrans (AST/SGOT 24 U/L (12-37); Bilirubin, Total 0.4 mg/dL (0.1-1.0); Blood Urea Nitrogen 15 mg/dL (8-24); Bun/Creatinine Ratio 26.8 (12.0-20.0); CO2, Blood 30 mmol/L (21-32); Calcium, Blood 9.2 mg/dL (8.5-10.1); Chloride, Blood 102 mmol/L (98-108); Creatinine, Blood 0.56 mg/dL (0.40-1.00); Glomerular Filtration Rate >60 (60-); Glucose, Blood 110 mg/dL (70-99); Magnesium, Blood 2.4 mg/dL (1.6-2.4); Potassium, Blood 4.1 mmol/L (3.5-5.5); Sodium, Blood 135 mmol/L (136-145); Total Protein, Blood 7.5 g/dL (6.4-8.2)
--- NOTE | 2019-11-20 06:09 | NUR ---
SHIFT SUMMARY ADMITTED FOR POSSIBLE CVA, PT STATED HAVING NO SYMPTOMS AND SHOWED NO SIGNS, FACIAL DROOP OR ARM DRIFT. ABLE TO AMBULATE TO TOILET WITH WALKER WITH NO DIZZINESS OR DIFFICULTIES. PT SHOWS NO NEUROLOGICAL SIGNS AND STATED SHE WAS COMFORTABLE T/O THE SHIFT. WILL CONTINUE TO MONITOR UNTIL SHIFT CHANGE.
[2019-11-20] MEDS ORDERED: LOSA25 PO (09:45)
--- NOTE | 2019-11-20 15:05 | NUR ---
SHIFT SUMMARY PT A&Ox3; SLOW TO RESPOND. PT 1 PERSON ASSIST IN ROOM. PT DENIES PAIN, SOB, [place], DIZZINESS AND LIGHTHEADEDNESS. VSS. NO OTHER ACUTE CHANGES NOTED DURING SHIFT. EDUCATED PT AT BEDSIDE AND GRANDDAUGHTER, YENY, OVER THE PHONE FOR DISCHARGE INSTRUCTIONS, MEDICATIONS, AND FOLLOW UP APPOINTMENTS. PT PRESCRIPTIONS FAXED TO [facility] PER PT REQUEST. PT LEFT ROOM AT 1230 VIA WHEELCHAIR. PT STABLE UPON DISCHARGE.
== END 2019-11-20 12:29 | disposition home or self-care (01) ==
LOC: ER 13:04 → PCU 13:05
PROVIDERS: Emergency Medicine; Internal Medicine; Nurse Practitioner Acute Care; ADMIT Hospitalist
DX: R53.1 Weakness (principal); R06.02 Shortness of breath; I10 Essential (primary) hypertension; Z95.818 Presence of other cardiac implants and grafts; E78.5 Hyperlipidemia, unspecified; Z20.828 Contact with and (suspected) exposure to other viral communicable diseases; N39.0 Urinary tract infection, site not specified; Z88.5 Allergy status to narcotic agent; Z88.2 Allergy status to sulfonamides; Z88.8 Allergy status to other drugs, medicaments and biological substances; Z88.1 Allergy status to other antibiotic agents; Z91.010 Allergy to peanuts; Z86.73 Personal history of transient ischemic attack (TIA), and cerebral infarction without residual deficits; Z87.891 Personal history of nicotine dependence; Z79.899 Other long term (current) drug therapy; Z79.01 Long term (current) use of anticoagulants
CPT/HCPCS: 36415; 70450; 70544; 70549; 71045; 80048; 80053; 82140; 83735; 83880; 84443; 84484; 85025; 85379; 85651; 93005; 93010; 96374; 97116; 97161; 99285-25; A9270-GY; A9579; G0008; G0378; J2060; Q2038; U0003

== ENCOUNTER 2019-12-06 08:15 | Day surgery (SDC) | payer MEDICARE, OTHER ==
[~2019-12-06] VITALS: Ht 165.1 cm; Wt 85.1 kg
[~2019-12-06 08:15] MED LIST changes: +ATOR40TA PO; +Aspir 8181 MG PO; +ELIQUIS5 MG PO; +HYDCHL25 PO; +IRBESARTAN-HCT1 EAC3 PO; +LOSA25 PO; +LOSA50 PO; +NYSTATIN15 GM TOP; +Nitrofurantoin100 M1 PO; +OMEPRAZOLE MAGN20 MG PO
== END 2019-12-06 10:22 | disposition home or self-care (01) ==
LOC: ORSCSDS 08:15
PROVIDERS: Student in an Organized Health Care Education/Training Program
PROC: 0DB98ZX Excision of Duodenum, Via Natural or Artificial Opening Endoscopic, Diagnostic (ICD-10-PCS; principal; 2019-12-06 09:45)
DX: R13.10 Dysphagia, unspecified (principal); K21.9 Gastro-esophageal reflux disease without esophagitis; K31.7 Polyp of stomach and duodenum; I10 Essential (primary) hypertension; K44.9 Diaphragmatic hernia without obstruction or gangrene; Z79.899 Other long term (current) drug therapy; E78.5 Hyperlipidemia, unspecified; Z79.01 Long term (current) use of anticoagulants; Z79.82 Long term (current) use of aspirin
CPT/HCPCS: 88305; J2704; J7120

== ENCOUNTER 2020-01-19 17:10 | Emergency (ER) | payer MEDICARE, OTHER ==
[~2020-01-19] VITALS: Ht 160 cm; Wt 81.7 kg
[2020-01-19] MEDS ORDERED: Roxicodone5 MG PO (19:08)
== END 2020-01-19 20:11 | disposition home or self-care (01) ==
LOC: ER 17:10
DX: S82.241A Displaced spiral fracture of shaft of right tibia, initial encounter for closed fracture (principal); E78.5 Hyperlipidemia, unspecified; I10 Essential (primary) hypertension; Z86.73 Personal history of transient ischemic attack (TIA), and cerebral infarction without residual deficits; K21.9 Gastro-esophageal reflux disease without esophagitis; Z88.5 Allergy status to narcotic agent; Z88.1 Allergy status to other antibiotic agents; Z88.2 Allergy status to sulfonamides; Z79.01 Long term (current) use of anticoagulants; Z79.899 Other long term (current) drug therapy; Z87.891 Personal history of nicotine dependence; X58.XXXA Exposure to other specified factors, initial encounter
CPT/HCPCS: 29515; 73590; 73610; 73700; 96374-59; 99284-25; A9270; J1170

== ENCOUNTER 2020-09-04 05:59 | Observation (INO) | payer MEDICARE, OTHER ==
[~2020-09-04] VITALS: Ht 162.6 cm; Wt 84.5 kg
[~2020-09-04 05:59] MED LIST changes: +AEREDS PO; +ALLERGY PILL PO; +BILLBERRY PO; +CALCIUM CIT 311 EACH PO; +CHROMIUM PIC1000 MC1 PO; +GLUCHON PO; +MAGNESIUM PO; +OXYB5 PO; +Roxicodone5 MG PO; +STOOL SOFTENER PO; +[UNRECOGNIZED DRUG - OTHER] PO
--- NOTE | 2020-09-04 06:15 | NUR ---
PT TO UNIT VIA WHEELCHAIR, UNABLE TO STAND ON SCALE. STATES WEIGHT AT DR OFFICE RECNTLY, MATCHES WITH H&P FROM MD. DAUGHTER AT SIDE. PT IS TEARFUL, PAIN IN L SHOULDER. PT ALSO STATES SHE CRIES FREQUENTLY. ASSISTED PT TO BED AND DRESSED. R KNEE PREPPED. PT CONT TO BE PAINFUL AND TEARFUL THROUGHOUT PREOP TIME. DELAYED PREP TO ADJUST FOR L SHOULDER PAIN AND PT NEEDS.
--- NOTE | 2020-09-04 12:07 | NUR ---
PT ARRIVED TO UNIT FROM PACU IN BED UPON ARRIVAL, RATED PAIN 6/10. DENIES N/V OR SOB. NOW STATING PAIN 8/10. POLAR PACK IN PLACE. PT LEGALLY BLIND. VSS. LCA. HRR. BT HYPOX4. PT ABLE TO MOVE L LEG AND WIGGLE TOES, NOT ABLE TO ON RIGHT AT THIS TIME. RLE IN IMMOBILIZER. MARCELO WRAP CDI. CALL LIGHT IN REACH.
[2020-09-04] MEDS ORDERED: TRAM50 PO (15:12)
--- NOTE | 2020-09-04 16:13 | NUR ---
SUMMARY NO ACUTE CHANGES SINCE ARRIVING TO UNIT. MEDICATED PER ORDERS FOR PAIN. PT WAS RESTING W/EYES CLOSED PRIOR TO THERAPY GOING IN TO WORK W/PT. HINGED BRACE IN PLACE. MARCELO WRAP TO RLE CDI. REPORT GIVEN TO FABRICIO CAMPOS.
--- NOTE | 2020-09-04 18:17 | NUR ---
SINCE ASSUMING CARE PT HAS DONE WELL. JUST GOT BACK TO BED AT THIS TIME AFTER USING BSC. HAVING SOME ISSUES W/ L FOOT CONTROL BUT IMPROVING. PAIN WELL MANAGED.
[2020-09-05 05:06] LABS: BASOPHILS ABSOLUTE AUTO 0.03 K/mm3 (0.00-0.23); BASOPHILS PERCENT AUTO 0 % (0-2); EOSINOPHILS ABSOLUTE AUTO 0.06 K/mm3 (0.00-0.68); EOSINOPHILS PERCENT AUTO 1 % (0-6); Hematocrit 33.9 % (33.0-51.0); Hemoglobin 11.3 g/dL (11.5-16.0); IMMATURE GRAN ABSOLUTE AUTO 0.04 K/mm3 (0.00-0.10); IMMATURE GRAN PERCENT AUTO 0 % (0-1); LYMPHOCYTES ABSOLUTE AUTO 1.92 K/mm3 (0.84-5.20); LYMPHOCYTES PERCENT AUTO 16 % (21-46); MONOCYTES ABSOLUTE AUTO 1.28 K/mm3 (0.16-1.47); MONOCYTES PERCENT AUTO 11 % (4-13); Mean Corpuscular HGB 29.7 pg (26.0-34.0); Mean Corpuscular HGB Conc 33.3 g/dL (31.5-36.5); Mean Corpuscular Volume 89 fL (80-100); Mean Platelet Volume 9.1 fL (9.1-12.4); NEUTROPHILS ABSOLUTE AUTO 8.51 K/mm3 (1.96-9.15); NEUTROPHILS PERCENT AUTO 72 % (41-73); Platelet Count 252 K/mm3 (150-400); RDW Coefficient Variation 12.4 % (11.7-14.2); RDW Standard Deviation 40.5 fL (35.1-46.3); White Blood Cell Count 11.84 K/mm3 (4.00-11.30)
[2020-09-05 05:30] LABS: Anion Gap 4 mmol/L (6-16); Blood Urea Nitrogen 11 mg/dL (8-24); Bun/Creatinine Ratio 18.8 (12.0-20.0); CO2, Blood 29 mmol/L (21-32); Chloride, Blood 101 mmol/L (98-108); Creatinine, Blood 0.58 mg/dL (0.40-1.00); Glomerular Filtration Rate >60 (60-); Glucose, Blood 111 mg/dL (70-99); Potassium, Blood 4.4 mmol/L (3.5-5.5); Sodium, Blood 134 mmol/L (136-145)
--- NOTE | 2020-09-05 06:43 | NUR ---
SHIFT SUMMARY POD1 R TKA, A/O X4, VSS, TOLERATING PO, AMBULATES WELL c 1 SBA, USED BSC T/O SHIFT TONIGHT, PAIN WELL MANAGED PER EMAR. NO ACUTE EVENTS THIS SHIFT. CALL ARA IN REACH, REPORT GIVEN TO DAY RN.
--- NOTE | 2020-09-05 07:44 | NUR ---
bianca by to see pt ok to discharge today with h/h after physical therapy today pt given po tylenol pain 08/25 helped pt to brush her teeth pt can wiggle toes and has no numbess today
[2020-09-05] MEDS ORDERED: CLIN300 PO (10:10)
--- NOTE | 2020-09-05 10:34 | NUR ---
pt cleared by physical therapy pastoral care at bedside
--- NOTE | 2020-09-05 10:43 | NUR ---
Upon receiving an admit referral for spiritual care, I visit patient. Patient tells me about the tragic deaths of her two grown children, her progressive blindness and the Parkinson's that her is dealing with. Although patient is dealing grief she shows no signs of spiritual distress and is easily encouraged in her [employer] yovani. Patient talks about the strength she gets from her personal prayer and from the [employer] she attends. I reinforce helpful attitudes and practices and provide pastoral weight loss counselor, grief support and prayer. Patient responds well and shows signs of being encouraged in her yovani. I will continue to remain available to patient and family.
--- NOTE | 2020-09-05 11:01 | NUR ---
discharge instructions reviewed with pt and daughter dressing supplies given along with rx no acute changes meds given earlier for pain pt stated her pain was down 2-3/10 dressed pt's daughter getting her wc to help her back out to the car
--- NOTE | 2020-09-05 12:03 | NUR ---
PT GETTING INTO THE CAR WITH REGIONAL SALES MANAGER HAD SEVERAL EPISODES OF [place] SHE CALLED I AND THE CONCRETE VIBRATOR OPERATOR KENDRICK WENT DOWN THE CAR AND PLACED HER IN A WC ABLE TO TALK WITH HER AFTER STERNAL RUBBING PT BROUGHT BACK TO ROOM 213 NEW IV PLACED EKG DONE IVF INFUSING [place] NOTIFIED ICE PLACED BELOW THE KNEE AND ABOVE THE KNEE REPORTS PAIN 10/10 TORADOL GIVEN PT STATED IF FEELS LIKE A SPASM
[2020-09-05 15:06] LABS: BASOPHILS ABSOLUTE AUTO 0.03 K/mm3 (0.00-0.23); BASOPHILS PERCENT AUTO 0 % (0-2); EOSINOPHILS ABSOLUTE AUTO 0.03 K/mm3 (0.00-0.68); EOSINOPHILS PERCENT AUTO 0 % (0-6); Hematocrit 32.5 % (33.0-51.0); Hemoglobin 11.2 g/dL (11.5-16.0); IMMATURE GRAN ABSOLUTE AUTO 0.06 K/mm3 (0.00-0.10); IMMATURE GRAN PERCENT AUTO 1 % (0-1); LYMPHOCYTES ABSOLUTE AUTO 1.58 K/mm3 (0.84-5.20); LYMPHOCYTES PERCENT AUTO 14 % (21-46); MONOCYTES ABSOLUTE AUTO 1.22 K/mm3 (0.16-1.47); MONOCYTES PERCENT AUTO 11 % (4-13); Mean Corpuscular HGB 30.3 pg (26.0-34.0); Mean Corpuscular HGB Conc 34.5 g/dL (31.5-36.5); Mean Corpuscular Volume 88 fL (80-100); Mean Platelet Volume 9.1 fL (9.1-12.4); NEUTROPHILS ABSOLUTE AUTO 8.04 K/mm3 (1.96-9.15); NEUTROPHILS PERCENT AUTO 73 % (41-73); Platelet Count 233 K/mm3 (150-400); RDW Coefficient Variation 12.2 % (11.7-14.2); RDW Standard Deviation 39.4 fL (35.1-46.3); White Blood Cell Count 10.96 K/mm3 (4.00-11.30)
[2020-09-05 15:30] LABS: Anion Gap 7 mmol/L (6-16); Blood Urea Nitrogen 12 mg/dL (8-24); Bun/Creatinine Ratio 20.5 (12.0-20.0); CO2, Blood 27 mmol/L (21-32); Chloride, Blood 99 mmol/L (98-108); Creatinine, Blood 0.58 mg/dL (0.40-1.00); Glomerular Filtration Rate >60 (60-); Glucose, Blood 125 mg/dL (70-99); Potassium, Blood 4.1 mmol/L (3.5-5.5); Sodium, Blood 133 mmol/L (136-145); Troponin I <0.015 ng/mL (0.000-0.040)
--- NOTE | 2020-09-05 15:50 | NUR ---
DR BURNETTE CALLED UPDATED HIM ON WHAT DR WORTHINGTON HAD ORDERED FOR PT AND HE REQ FOR HER TO TAKE THINGS SLOW
[2020-09-05 17:14] LABS: Appearance, Urine Clear (Clear); Bilirubin, Urine Neg (Neg); Blood, Urine Neg (Neg); Color, Urine Yellow (P-Yellow); Glucose Qualitative, Urine Neg (Neg); Ketones, Urine 2+ (Neg); Leukocyte Esterase, Urine Neg (Neg); Nitrite, Urine Neg (Neg); Protein, Urine Neg (Neg); Urobilinogen, Urine NORM (Normal)
--- NOTE | 2020-09-05 18:40 | NUR ---
REVIEWED THE RESULTS OF IMAGING WITH DAUGHTER PT STATED SHE IS FEELING BETTER PAIN 05/26 EARLIER [place] CALLED UPDATE GIVEN 2 VIEW XRAY ALSO DONE WHEN PT WAS DONE WITH THE CT TO R/O PE BOTH NEG
[2020-09-06 04:41] LABS: BASOPHILS ABSOLUTE AUTO 0.05 K/mm3 (0.00-0.23); BASOPHILS PERCENT AUTO 1 % (0-2); EOSINOPHILS ABSOLUTE AUTO 0.08 K/mm3 (0.00-0.68); EOSINOPHILS PERCENT AUTO 1 % (0-6); Hematocrit 32.3 % (33.0-51.0); Hemoglobin 10.8 g/dL (11.5-16.0); IMMATURE GRAN ABSOLUTE AUTO 0.03 K/mm3 (0.00-0.10); IMMATURE GRAN PERCENT AUTO 0 % (0-1); LYMPHOCYTES ABSOLUTE AUTO 1.96 K/mm3 (0.84-5.20); LYMPHOCYTES PERCENT AUTO 22 % (21-46); MONOCYTES ABSOLUTE AUTO 1.11 K/mm3 (0.16-1.47); MONOCYTES PERCENT AUTO 12 % (4-13); Mean Corpuscular HGB 29.6 pg (26.0-34.0); Mean Corpuscular HGB Conc 33.4 g/dL (31.5-36.5); Mean Corpuscular Volume 89 fL (80-100); Mean Platelet Volume 9.5 fL (9.1-12.4); NEUTROPHILS ABSOLUTE AUTO 5.85 K/mm3 (1.96-9.15); NEUTROPHILS PERCENT AUTO 64 % (41-73); Platelet Count 250 K/mm3 (150-400); RDW Coefficient Variation 12.3 % (11.7-14.2); Red Blood Cell Count 3.65 M/mm3 (3.80-5.20); White Blood Cell Count 9.08 K/mm3 (4.00-11.30)
[2020-09-06 05:30] LABS: Anion Gap 5 mmol/L (6-16); Blood Urea Nitrogen 8 mg/dL (8-24); Bun/Creatinine Ratio 14.8 (12.0-20.0); CO2, Blood 27 mmol/L (21-32); Calcium, Blood 8.8 mg/dL (8.5-10.1); Chloride, Blood 102 mmol/L (98-108); Creatinine, Blood 0.54 mg/dL (0.40-1.00); Glomerular Filtration Rate >60 (60-); Glucose, Blood 103 mg/dL (70-99); Potassium, Blood 3.8 mmol/L (3.5-5.5); Sodium, Blood 134 mmol/L (136-145)
--- NOTE | 2020-09-06 06:42 | NUR ---
PT A/OX4. VSS ON RA. PAIN MANAGED WELL W/ PRN AND SCHEDULED PAIN MEDS. USING BEDPAN. SLEEPING B/W CARE. PT DECLINED OOT, NO ORTHOSTATIC BP'S TAKEN. USING CALL LIGHT TO MAKE NEEDS KNOWN.
--- NOTE | 2020-09-06 18:10 | NUR ---
pt reports pain adequately controlled with po meds. brace in place to rle, skin intact and without any reddened areas from brace. pt denies any numbness or tingling able to move toes when requested to do so. pt 1 person assist to commode with walker and gait belt
--- NOTE | 2020-09-07 04:29 | NUR ---
SHIFT SUMMARY POD3 R TKA W/ DR. BURNETTE. R KNEE WITH MARCELO WRAP AND BRACE, CDI. POLAR PACK IN PLACED. NO ACUTE CHANGES OVERNIGHT. SLEPT GOOD T/O SHIFT. PT HAS BEEN VOIDING ADEQUATELY WITHOUT ANY DIFFICULTY. SHE HAS USED BEDPAN TWICE DUE TO FREQUENT URINATING AT NIGHT AND PAIN. BUT SHE WAS ALSO ABLE TO TOLERATE BSC WITH 1 MIN SBA. PT DENIES NUMBNESS AND TINGLING SENSATION. NO DIZZINESS WHEN GETTING UP. TELE ON SINUS AT 73. PT REPORTS MIN TO MOD PAIN LEVEL. PAIN MANAGED WITH ULTRAM AND TYLENOL. TOLEARTING PO INTAKE DENIES NAUSEA AND VOMITING. PASSING FLATUS. VSS. AOX4. USE CALL LIGHT APPROPRIATELY. CALL LIGHT WITHIN REACH. WILL PROVIDE REPORT TO ONCOMING AM NURSE.
[2020-09-07 04:40] LABS: Anion Gap 5 mmol/L (6-16); Blood Urea Nitrogen 7 mg/dL (8-24); Bun/Creatinine Ratio 13.8 (12.0-20.0); CO2, Blood 27 mmol/L (21-32); Calcium, Blood 8.4 mg/dL (8.5-10.1); Chloride, Blood 100 mmol/L (98-108); Creatinine, Blood 0.51 mg/dL (0.40-1.00); Glomerular Filtration Rate >60 (60-); Glucose, Blood 101 mg/dL (70-99); Magnesium, Blood 1.9 mg/dL (1.6-2.4); Sodium, Blood 132 mmol/L (136-145)
[2020-09-07] MEDS ORDERED: METO25ER PO (10:45)
--- NOTE | 2020-09-07 13:04 | NUR ---
1250 DISCHARGED TO HOME PT REPORTS PAIN IS WELL CONTROLLED WITH PO MEDS. PT AND HER DAUGHTER VERBALIZE UNDERSTANDING OF DRESSING CHANGES, ACTIVITY, USE OF BRACE AND [place]. HOME HEALTH REFERRAL HAS BEEN MADE FOR THIS PATIENT. PT VOIDING CLEAR YELLOW URINE. PT CHARLINE PO FOOD AND FLUID. PT STATES PASSING FLATUR. PT STATES IS IN AGREEEMNT WITH DISCHARGE PLAN. DR BURNETTE IN AT 1100 AND REMOVED AND REAPPLIED PATIENTS BRACE. NO SIGN OF REDNESS AND NO OPEN AREAS WHERE BRACE IS IN CONTACT WITH SKIN. POLAR PACK SENT HOME WITH PATIENT
== END 2020-09-07 12:45 | disposition home or self-care (01) ==
LOC: SURS 05:59 → ORSCMMR 05:59 → ORD 07:30 → SURS 11:51 → ORSCMMR 11:52 → SURS 11:52 → ORSCMMR 09-06 11:42 → SURS 09-07 12:45
PROVIDERS: Internal Medicine; ADMIT Orthopaedic Surgery
PROC: 0SRC069 Replacement of Right Knee Joint with Oxidized Zirconium on Polyethylene Synthetic Substitute, Cemented, Open Approach (ICD-10-PCS; principal; 2020-09-04 07:30)
DX: M17.31 Unilateral post-traumatic osteoarthritis, right knee (principal); R55 Syncope and collapse; M21.161 Varus deformity, not elsewhere classified, right knee; J45.909 Unspecified asthma, uncomplicated; E78.5 Hyperlipidemia, unspecified; K21.9 Gastro-esophageal reflux disease without esophagitis; R91.1 Solitary pulmonary nodule; M16.0 Bilateral primary osteoarthritis of hip; I27.20 Pulmonary hypertension, unspecified; I70.0 Atherosclerosis of aorta; I11.9 Hypertensive heart disease without heart failure; I49.1 Atrial premature depolarization; I48.0 Paroxysmal atrial fibrillation; Z87.891 Personal history of nicotine dependence; Z86.73 Personal history of transient ischemic attack (TIA), and cerebral infarction without residual deficits; Z88.1 Allergy status to other antibiotic agents; Z88.5 Allergy status to narcotic agent; Z91.010 Allergy to peanuts
CPT/HCPCS: 36415; 71045; 71260; 73502; 73560-RT; 80048; 81003; 82947; 83735; 84484; 85025; 85379; 93005; 93010; 93291; 93306; 97110; 97116; 97162; A9270; C1713; C1776; J0171; J0690; J0735; J1100; J1170; J1885; J2250; J2370; J2405; J2704; J2795; J3010; J7120; Q9967

== ENCOUNTER → 2020-11-10 | Outpatient (CLI) | payer MEDICARE, OTHER ==
[~2020-11-10] MED LIST changes: +CLIN300 PO; +METO25ER PO; +TRAM50 PO
== END | disposition home or self-care (01) ==
LOC: LAB SHORT 12:02 → LAB 12:02
DX: N39.0 Urinary tract infection, site not specified (principal)
CPT/HCPCS: 87086

== ENCOUNTER → 2020-12-30 | Outpatient (CLI) | payer MEDICARE, OTHER ==
[2020-12-31 15:04] LABS: Stool Occult Bld Immuno 1 Negative (NEGATIVE); Stool Occult Bld Immuno 2 Negative (NEGATIVE); Stool Occult Bld Immuno 3 Negative (NEGATIVE)
== END | disposition home or self-care (01) ==
LOC: LAB 15:25 → LAB SHORT 15:25 → LAB FUT 12-27 09:05
PROVIDERS: Physician Assistant
DX: Z12.11 Encounter for screening for malignant neoplasm of colon (principal)
CPT/HCPCS: G0328

== ENCOUNTER 2021-02-08 09:23 | Emergency (ER) | payer MEDICARE, OTHER ==
[~2021-02-08] VITALS: Ht 167.6 cm; Wt 84.4 kg
[2021-02-08] MEDS ORDERED: Norco 5-325 Ta1 EACH PO ×2 (10:50→10:51)
== END 2021-02-08 11:05 | disposition home or self-care (01) ==
LOC: ER 09:23
DX: M17.12 Unilateral primary osteoarthritis, left knee (principal); I10 Essential (primary) hypertension; E78.5 Hyperlipidemia, unspecified; K21.9 Gastro-esophageal reflux disease without esophagitis; Z88.1 Allergy status to other antibiotic agents; Z88.5 Allergy status to narcotic agent; Z88.8 Allergy status to other drugs, medicaments and biological substances; Z91.018 Allergy to other foods; Z79.899 Other long term (current) drug therapy
CPT/HCPCS: 20610; 96372; 99283-25; A9270; J3301

== ENCOUNTER 2021-03-18 10:19 | Observation (INO) | payer MEDICARE, OTHER ==
[~2021-03-18] VITALS: Ht 162.6 cm; Wt 81.7 kg
[~2021-03-18 10:19] MED LIST changes: +Norco 5-325 Ta1 EACH PO
[2021-03-18 14:34] LABS: Protein, Body Fluid 5.5 g/dL
[2021-03-18 14:44] LABS: BASOPHILS ABSOLUTE AUTO 0.03 K/mm3 (0.00-0.23); BASOPHILS PERCENT AUTO 0 % (0-2); EOSINOPHILS PERCENT AUTO 0 % (0-6); Hematocrit 35.9 % (33.0-51.0); IMMATURE GRAN ABSOLUTE AUTO 0.04 K/mm3 (0.00-0.10); IMMATURE GRAN PERCENT AUTO 0 % (0-1); LYMPHOCYTES PERCENT AUTO 5 % (21-46); MONOCYTES ABSOLUTE AUTO 0.59 K/mm3 (0.16-1.47); MONOCYTES PERCENT AUTO 4 % (4-13); Mean Corpuscular HGB 29.9 pg (26.0-34.0); Mean Corpuscular HGB Conc 33.4 g/dL (31.5-36.5); Mean Corpuscular Volume 89 fL (80-100); Mean Platelet Volume 8.9 fL (9.1-12.4); NEUTROPHILS ABSOLUTE AUTO 12.17 K/mm3 (1.96-9.15); NEUTROPHILS PERCENT AUTO 90 % (41-73); Platelet Count 295 K/mm3 (150-400); RDW Coefficient Variation 13.3 % (11.7-14.2); RDW Standard Deviation 44.1 fL (35.1-46.3); Red Blood Cell Count 4.02 M/mm3 (3.80-5.20); White Blood Cell Count 13.53 K/mm3 (4.00-11.30)
[2021-03-18 14:57] LABS: Alanine Aminotransfer (ALT/SGP 41 U/L (12-78); Albumin, Blood 3.3 g/dL (3.4-5.0); Albumin/Globulin Ratio 0.9 (0.8-1.8); Alk Phos 116 U/L (50-136); Anion Gap 8 mmol/L (6-16); Aspartate Aminotrans (AST/SGOT 39 U/L (12-37); Bilirubin, Total 0.4 mg/dL (0.1-1.0); Blood Urea Nitrogen 13 mg/dL (8-24); Bun/Creatinine Ratio 23.4 (12.0-20.0); CO2, Blood 23 mmol/L (21-32); Chloride, Blood 98 mmol/L (98-108); Creatinine, Blood 0.56 mg/dL (0.40-1.00); Globulin, Blood 3.6 g/dL (2.2-4.0); Glomerular Filtration Rate >60 (60-); Glucose, Blood 145 mg/dL (70-99); Potassium, Blood 4.2 mmol/L (3.5-5.5); Sodium, Blood 129 mmol/L (136-145); Total Protein, Blood 6.9 g/dL (6.4-8.2)
[2021-03-18 15:19] LABS: Body Fluid Crystals NEG (NEGATIVE)
[2021-03-18 15:30] LABS: Color, Synovial Fluid Red (None-P Yel)
[2021-03-18 15:31] LABS: Appearance, Synovial Fluid Bloody (Clear)
[2021-03-18 15:36] LABS: BODY FLUID RBC 0.374 M/mm3 (0-0); RBC Count, Synovial Fluid 374000 /mm3 (0-0); WBC Count, Synovial Fluid 1611 /mm3 (0-180)
[2021-03-18 16:15] LABS: Eos, Synovial Fluid 1 % (0-2); Lymphs, Synovial Fluid 40 % (0-15); Monocytes/Macrophages, Synovia 7 % (0-65); Neutrophils, Synovial Fluid 52 % (0-24)
--- NOTE | 2021-03-19 04:01 | NUR ---
SHIFT SUMMARY: PT. IS AOX4, COMPLAINTS OF L KNEE PAIN MEDICATED, SEE EMAR. SMALL BRUISE NOTED AT L KNEE WHICH COULD BE RELATED TO PUNCTURE FOR FLUID REMOVAL IN ER. L KNEE WITH MODERATE SWELLING. 3 SMALL RED DOTS NOTED AT PT'S PRIVATE AREA. NPO STARTED MIDNIGHT PER MD ORDER.INCONTINENT WITH VOIDING.ORIENTED TO ROOM, EDUCATED TO USE CALL LIGHT FOR ANY HELP NEEDED, PT. VERBALIZED UNDERSTANDING. NO S/S OF RESP./CV DISTRESS NOTED. WILL CONTINUE TO MONITOR.
[2021-03-19 07:34] LABS: BASOPHILS ABSOLUTE AUTO 0.04 K/mm3 (0.00-0.23); BASOPHILS PERCENT AUTO 1 % (0-2); EOSINOPHILS ABSOLUTE AUTO 0.06 K/mm3 (0.00-0.68); EOSINOPHILS PERCENT AUTO 1 % (0-6); Hematocrit 37.3 % (33.0-51.0); Hemoglobin 12.1 g/dL (11.5-16.0); IMMATURE GRAN ABSOLUTE AUTO 0.01 K/mm3 (0.00-0.10); IMMATURE GRAN PERCENT AUTO 0 % (0-1); LYMPHOCYTES ABSOLUTE AUTO 1.93 K/mm3 (0.84-5.20); LYMPHOCYTES PERCENT AUTO 29 % (21-46); MONOCYTES ABSOLUTE AUTO 0.62 K/mm3 (0.16-1.47); MONOCYTES PERCENT AUTO 10 % (4-13); Mean Corpuscular HGB 29.7 pg (26.0-34.0); Mean Corpuscular HGB Conc 32.4 g/dL (31.5-36.5); Mean Corpuscular Volume 92 fL (80-100); Mean Platelet Volume 8.8 fL (9.1-12.4); NEUTROPHILS PERCENT AUTO 59 % (41-73); Platelet Count 266 K/mm3 (150-400); RDW Coefficient Variation 13.5 % (11.7-14.2); RDW Standard Deviation 45.8 fL (35.1-46.3); Red Blood Cell Count 4.07 M/mm3 (3.80-5.20); White Blood Cell Count 6.56 K/mm3 (4.00-11.30)
[2021-03-19 07:54] LABS: Alanine Aminotransfer (ALT/SGP 42 U/L (12-78); Albumin, Blood 3.2 g/dL (3.4-5.0); Albumin/Globulin Ratio 0.9 (0.8-1.8); Alk Phos 118 U/L (50-136); Anion Gap 6 mmol/L (6-16); Aspartate Aminotrans (AST/SGOT 35 U/L (12-37); Bilirubin, Total 0.5 mg/dL (0.1-1.0); Blood Urea Nitrogen 9 mg/dL (8-24); Bun/Creatinine Ratio 16.4 (12.0-20.0); CO2, Blood 28 mmol/L (21-32); Calcium, Blood 9.2 mg/dL (8.5-10.1); Chloride, Blood 101 mmol/L (98-108); Creatinine, Blood 0.55 mg/dL (0.40-1.00); Globulin, Blood 3.7 g/dL (2.2-4.0); Glomerular Filtration Rate >60 (60-); Glucose, Blood 110 mg/dL (70-99); Potassium, Blood 4.2 mmol/L (3.5-5.5); Sodium, Blood 135 mmol/L (136-145); Total Protein, Blood 6.9 g/dL (6.4-8.2)
[2021-03-19] MEDS ORDERED: TIZANIDINE HCL2 MG PO (10:07)
--- NOTE | 2021-03-19 15:04 | NUR ---
Pt. was sitting up and welcomed my visit. Pt. verbalized being blind. Established rapport. Pt. was unsettled and welcomed prayer for the pain she was experiencing, and prayer for healing. Pt. verbalized that spouse is also disabled. Considered questions of yovani and belief. Pt. verbalized her yovani journey. Provided prayer, Pt. displayed evidence of understanding and gratitude. Visited awhile longer and listened to life story. Pt. verbalized her gratitude for the visit. Pt. verbalized expectation to be discharged tomorrow.
--- NOTE | 2021-03-19 17:43 | NUR ---
SHIFT SUMMARY PT WORKED w/ PT&OT TODAY. UP TO BATHROOM SEVERAL TIMES & SPENT DAY IN CHAIR w/ LEGS ELEVATED. ORTHO CONSULT COMPLETED. IV ABX INFUSED ORDERED. GETS TEARFUL & CRIES AT X's; STATES THIS IS NORMAL SINCE HER STROKE.
--- NOTE | 2021-03-20 04:44 | NUR ---
[employer] SUMMARY PT AAOX4 AND PLEASANT. AFFECT FLAT. REPORTS SOME DISCOMFORT OF L KNEE AT TIMES, MEDICATED WITH ULTRAM X1 WITH GOOD PAIN RELIEF PER PT. MINIMAL SWELLING NOTED TO L KNEE COMPARED TO R. VSS, WILL CONTINUE TO MONITOR.
--- NOTE | 2021-03-20 10:33 | NUR ---
Pt. was resting in recliner next to bed. Pt. responded to the sound of my entry and introduction. Pt. is blind, but has keen hearing. Pt. did not demonstrate any area of distress. Re-established rapport, and exchanged stories about yovani and belief. Pt. verbalized her readiness to be discharged. Listened empathetically. Provided anticipatory guidance for discharge and recovery at home. Pt. displayed evidence of confidence and peace. Prayed with Pt. Pt. verbalized her eternal hope as well as gratitude for care received and my visit.
[2021-03-20] MEDS ORDERED: DOCU100 PO (13:40)
[2021-03-20] MEDS ORDERED: SENN187 PO (13:40)
--- NOTE | 2021-03-20 14:58 | NUR ---
ASSUMED CARE OF PT AT APROX 1445. AWAITING CAREGIVER FOR DC
--- NOTE | 2021-03-20 15:39 | NUR ---
DISCHARGE PT DISCHARGED HOME FROM UNIT AT APROX 1540. PT AND CAREGIVER GIVEN WRITTEN AND VERBAL DISCHARGE INSTRUCTIONS AND BOTH VERBALIZED UNDERSTANDING. WC TO CAR.
== END 2021-03-20 16:17 | disposition home or self-care (01) ==
LOC: ER 10:19 → SURS 10:20
PROVIDERS: Student in an Organized Health Care Education/Training Program; ADMIT Internal Medicine
DX: M25.062 Hemarthrosis, left knee (principal); M15.9 Polyosteoarthritis, unspecified; E87.1 Hypo-osmolality and hyponatremia; I10 Essential (primary) hypertension; E78.5 Hyperlipidemia, unspecified; J45.909 Unspecified asthma, uncomplicated; E55.9 Vitamin D deficiency, unspecified; I48.0 Paroxysmal atrial fibrillation; Z79.01 Long term (current) use of anticoagulants; Z87.891 Personal history of nicotine dependence; Z96.651 Presence of right artificial knee joint; Z86.73 Personal history of transient ischemic attack (TIA), and cerebral infarction without residual deficits; Z88.1 Allergy status to other antibiotic agents; Z88.8 Allergy status to other drugs, medicaments and biological substances; Z88.5 Allergy status to narcotic agent; Z88.2 Allergy status to sulfonamides; Z91.010 Allergy to peanuts
CPT/HCPCS: 20610; 36415; 73562-LT; 80053; 84145; 84157; 85025; 85651; 86140; 87070; 87075; 87205; 89051; 89060; 93971; 96365; 96375; 96376; 97110; 97162; 97165; 97530; 97535; 99285-25; A9270; G0378; J0692; J1170; J2405

== ENCOUNTER 2021-05-09 13:32 | Emergency (ER) | payer MEDICARE, OTHER ==
[~2021-05-09] VITALS: Ht 172.7 cm; Wt 83.9 kg
[~2021-05-09 13:32] MED LIST changes: +DOCU100 PO; +SENN187 PO; +TIZANIDINE HCL2 MG PO
[2021-05-09 15:03] LABS: Source, Urine Straight Cath
[2021-05-09 15:06] LABS: Appearance, Urine Clear (Clear); Bilirubin, Urine Neg (Neg); Blood, Urine Neg (Neg); Color, Urine Yellow (P-Yellow); Glucose Qualitative, Urine Neg (Neg); Ketones, Urine Neg (Neg); Leukocyte Esterase, Urine Neg (Neg); Nitrite, Urine Neg (Neg); Protein, Urine Neg (Neg); Specific Gravity, Urine 1.015 (1.003-1.022); Urobilinogen, Urine NORM (Normal)
[2021-05-09 15:11] LABS: BASOPHILS ABSOLUTE AUTO 0.05 K/mm3 (0.00-0.23); BASOPHILS PERCENT AUTO 1 % (0-2); EOSINOPHILS ABSOLUTE AUTO 0.09 K/mm3 (0.00-0.68); EOSINOPHILS PERCENT AUTO 1 % (0-6); Hematocrit 41.5 % (33.0-51.0); Hemoglobin 13.5 g/dL (11.5-16.0); IMMATURE GRAN ABSOLUTE AUTO 0.01 K/mm3 (0.00-0.10); IMMATURE GRAN PERCENT AUTO 0 % (0-1); LYMPHOCYTES ABSOLUTE AUTO 1.74 K/mm3 (0.84-5.20); LYMPHOCYTES PERCENT AUTO 23 % (21-46); MONOCYTES PERCENT AUTO 11 % (4-13); Mean Corpuscular HGB 29.5 pg (26.0-34.0); Mean Corpuscular HGB Conc 32.5 g/dL (31.5-36.5); Mean Corpuscular Volume 91 fL (80-100); Mean Platelet Volume 9.3 fL (9.1-12.4); NEUTROPHILS PERCENT AUTO 65 % (41-73); Platelet Count 286 K/mm3 (150-400); RDW Coefficient Variation 12.6 % (11.7-14.2); RDW Standard Deviation 41.7 fL (35.1-46.3); Red Blood Cell Count 4.58 M/mm3 (3.80-5.20); White Blood Cell Count 7.59 K/mm3 (4.00-11.30)
[2021-05-09 15:36] LABS: Alanine Aminotransfer (ALT/SGP 37 U/L (12-78); Albumin, Blood 3.5 g/dL (3.4-5.0); Albumin/Globulin Ratio 0.9 (0.8-1.8); Alk Phos 123 U/L (50-136); Anion Gap 6 mmol/L (6-16); Aspartate Aminotrans (AST/SGOT 31 U/L (12-37); Bilirubin, Total 0.4 mg/dL (0.1-1.0); Blood Urea Nitrogen 14 mg/dL (8-24); Bun/Creatinine Ratio 24.1 (12.0-20.0); CO2, Blood 29 mmol/L (21-32); Calcium, Blood 9.1 mg/dL (8.5-10.1); Chloride, Blood 100 mmol/L (98-108); Creatinine, Blood 0.58 mg/dL (0.40-1.00); Glomerular Filtration Rate >60 (60-); Glucose, Blood 133 mg/dL (70-99); Potassium, Blood 4.2 mmol/L (3.5-5.5); Sodium, Blood 135 mmol/L (136-145); Total Protein, Blood 7.5 g/dL (6.4-8.2)
== END 2021-05-09 19:17 | disposition home or self-care (01) ==
LOC: ER 13:32
PROVIDERS: Emergency Medicine
DX: F41.9 Anxiety disorder, unspecified (principal); R41.0 Disorientation, unspecified; Z88.1 Allergy status to other antibiotic agents; Z88.8 Allergy status to other drugs, medicaments and biological substances; Z88.5 Allergy status to narcotic agent; Z88.2 Allergy status to sulfonamides; Z91.010 Allergy to peanuts; Z79.899 Other long term (current) drug therapy; I10 Essential (primary) hypertension; E78.5 Hyperlipidemia, unspecified; J45.909 Unspecified asthma, uncomplicated; M19.90 Unspecified osteoarthritis, unspecified site; I48.0 Paroxysmal atrial fibrillation; Z87.891 Personal history of nicotine dependence
CPT/HCPCS: 36415; 51701; 70450; 80053; 81003; 85025; 93005; 93010; J2060

== ENCOUNTER 2022-01-09 13:15 | Emergency (ER) | payer MEDICARE, OTHER ==
[~2022-01-09] VITALS: Ht 162.6 cm; Wt 90.7 kg
[2022-01-09 15:12] LABS: Source, Urine Clean Catch
[2022-01-09 15:29] LABS: Appearance, Urine Turbid (Clear); Blood, Urine 5+ (Neg); Color, Urine Yellow (P-Yellow); Glucose Qualitative, Urine Neg (Neg); Ketones, Urine 2+ (Neg); Leukocyte Esterase, Urine 3+ (Neg); Nitrite, Urine Pos (Neg); Protein, Urine 3+ (Neg); Urobilinogen, Urine 1+ (Normal)
[2022-01-09 15:35] LABS: Bilirubin, Urine 1+ (Neg)
[2022-01-09 15:37] LABS: Red Blood Cells, Urine 25-50 /hpf (0-2); White Blood Cells, Urine TNTC /hpf (0-5)
[2022-01-09 15:38] LABS: Bacteria Many /hpf; Renal Epithelial Few /hpf (0-Rare); Squamous Epithelial Cells Mod /hpf (Few); Transitional Epithelial Cells Rare /hpf (0-Rare)
[2022-01-09] MEDS ORDERED: Macrobid 100 M100 MG PO (16:14)
[2022-01-09] MEDS ORDERED: Pyridium100 MG PO (16:14)
== END 2022-01-09 16:28 | disposition left against medical advice (07) ==
LOC: ER 13:15
PROVIDERS: Physician Assistant
DX: N39.0 Urinary tract infection, site not specified (principal); I10 Essential (primary) hypertension; E78.5 Hyperlipidemia, unspecified; I48.0 Paroxysmal atrial fibrillation; J45.909 Unspecified asthma, uncomplicated; Z88.1 Allergy status to other antibiotic agents; Z88.5 Allergy status to narcotic agent; Z91.010 Allergy to peanuts; Z88.2 Allergy status to sulfonamides; Z79.899 Other long term (current) drug therapy; Z79.01 Long term (current) use of anticoagulants; Z87.891 Personal history of nicotine dependence
CPT/HCPCS: 81001; 87077; 87086; 87186; A9270

== ENCOUNTER → 2022-04-27 | Outpatient (CLI) | payer MEDICARE, OTHER ==
[~2022-04-27] MED LIST changes: +Macrobid 100 M100 MG PO; +Pyridium100 MG PO
== END ==
LOC: LAB SHORT 13:10 → LAB 13:10
DX: L08.9 Local infection of the skin and subcutaneous tissue, unspecified (principal)
CPT/HCPCS: 87070; 87077; 87147; 87186; 87205

== ENCOUNTER → 2022-06-23 | Outpatient (CLI) | payer MEDICARE, OTHER ==
[2022-06-23 10:52] LABS: BASOPHILS ABSOLUTE AUTO 0.03 K/mm3 (0.00-0.23); BASOPHILS PERCENT AUTO 0 % (0-2); EOSINOPHILS ABSOLUTE AUTO 0.08 K/mm3 (0.00-0.68); EOSINOPHILS PERCENT AUTO 1 % (0-6); Hematocrit 43.4 % (33.0-51.0); Hemoglobin 14.7 g/dL (11.5-16.0); IMMATURE GRAN ABSOLUTE AUTO 0.01 K/mm3 (0.00-0.10); IMMATURE GRAN PERCENT AUTO 0 % (0-1); LYMPHOCYTES ABSOLUTE AUTO 1.64 K/mm3 (0.84-5.20); LYMPHOCYTES PERCENT AUTO 24 % (21-46); MONOCYTES ABSOLUTE AUTO 0.56 K/mm3 (0.16-1.47); MONOCYTES PERCENT AUTO 8 % (4-13); Mean Corpuscular HGB 29.8 pg (26.0-34.0); Mean Corpuscular HGB Conc 33.9 g/dL (31.5-36.5); Mean Corpuscular Volume 88 fL (80-100); Mean Platelet Volume 9.8 fL (9.1-12.4); NEUTROPHILS ABSOLUTE AUTO 4.51 K/mm3 (1.96-9.15); NEUTROPHILS PERCENT AUTO 66 % (41-73); Platelet Count 267 K/mm3 (150-400); RDW Coefficient Variation 12.3 % (11.7-14.2); RDW Standard Deviation 39.8 fL (35.1-46.3); Red Blood Cell Count 4.94 M/mm3 (3.80-5.20); White Blood Cell Count 6.83 K/mm3 (4.00-11.30)
== END | disposition home or self-care (01) ==
LOC: LAB SHORT 09:50 → LAB 09:50
PROVIDERS: Physician Assistant
DX: M25.562 Pain in left knee (principal)
CPT/HCPCS: 85025; 85379

== ENCOUNTER 2022-09-20 15:24 | Emergency (ER) | payer MEDICARE, OTHER ==
[~2022-09-20] VITALS: Ht 165.1 cm; Wt 86.2 kg
[2022-09-20 17:09] LABS: BASOPHILS ABSOLUTE AUTO 0.05 K/mm3 (0.00-0.23); BASOPHILS PERCENT AUTO 0 % (0-2); EOSINOPHILS ABSOLUTE AUTO 0.06 K/mm3 (0.00-0.68); EOSINOPHILS PERCENT AUTO 1 % (0-6); Hematocrit 37.6 % (33.0-51.0); Hemoglobin 12.8 g/dL (11.5-16.0); IMMATURE GRAN ABSOLUTE AUTO 0.04 K/mm3 (0.00-0.10); IMMATURE GRAN PERCENT AUTO 0 % (0-1); LYMPHOCYTES ABSOLUTE AUTO 1.11 K/mm3 (0.84-5.20); LYMPHOCYTES PERCENT AUTO 10 % (21-46); MONOCYTES ABSOLUTE AUTO 0.59 K/mm3 (0.16-1.47); MONOCYTES PERCENT AUTO 5 % (4-13); Mean Corpuscular HGB 29.4 pg (26.0-34.0); Mean Corpuscular Volume 86 fL (80-100); Mean Platelet Volume 9.6 fL (9.1-12.4); NEUTROPHILS ABSOLUTE AUTO 9.65 K/mm3 (1.96-9.15); NEUTROPHILS PERCENT AUTO 84 % (41-73); Platelet Count 290 K/mm3 (150-400); RDW Coefficient Variation 13.4 % (11.7-14.2); RDW Standard Deviation 42.3 fL (35.1-46.3); Red Blood Cell Count 4.35 M/mm3 (3.80-5.20)
[2022-09-20 17:30] LABS: Albumin, Blood 3.7 g/dL (3.4-5.0); Bilirubin, Total 0.4 mg/dL (0.1-1.0); Bun/Creatinine Ratio 29.5 (12.0-20.0); Calcium, Blood 9.1 mg/dL (8.5-10.1); Creatinine, Blood 0.54 mg/dL (0.40-1.00); Globulin, Blood 3.7 g/dL (2.2-4.0); Potassium, Blood 4.5 mmol/L (3.5-5.5); Total Protein, Blood 7.4 g/dL (6.4-8.2)
[2022-09-20 20:00] VITALS: BP 176/79
[2022-09-20] MEDS ORDERED: PERCOCET 10-321 EA10 PO (22:11)
== END 2022-09-20 22:17 | disposition home or self-care (01) ==
LOC: ER 15:24
PROVIDERS: Student in an Organized Health Care Education/Training Program
DX: M25.562 Pain in left knee (principal); Z88.1 Allergy status to other antibiotic agents; Z88.8 Allergy status to other drugs, medicaments and biological substances; Z88.5 Allergy status to narcotic agent; Z91.010 Allergy to peanuts; Z88.2 Allergy status to sulfonamides; Z79.899 Other long term (current) drug therapy; Z87.891 Personal history of nicotine dependence; I10 Essential (primary) hypertension; E78.5 Hyperlipidemia, unspecified; J45.909 Unspecified asthma, uncomplicated; M19.90 Unspecified osteoarthritis, unspecified site; I48.0 Paroxysmal atrial fibrillation
CPT/HCPCS: 20610; 80053; 85025; 93971; 96361-59; 96374-59; 96376-59; 99284-25; A9270; J1170; J7030

== ENCOUNTER 2022-11-04 11:03 | Day surgery (SDC) | payer MEDICARE, OTHER ==
[2022-11-04] VITALS (23 sets, daily range): BP systolic 106–195; BP diastolic 53–111
[~2022-11-04] VITALS: Ht 157.5 cm; Wt 87.9 kg
[~2022-11-04 11:03] MED LIST changes: +Amoxicillin500 MG PO; +LIDO700A20 TOP; +PERCOCET 10-321 EA10 PO; +TOPROL XL25 MG PO
[2022-11-04] MEDS ORDERED: MUPIROCIN1 G4 TOP (12:10)
[2022-11-04] MEDS ORDERED: OXYB5 PO (12:12)
--- NOTE | 2022-11-04 14:13 | NUR ---
Surgical site prepped with 2% Chlorhexidine cloth wipe. History, Chart, Medications and Allergies reviewed before start of procedure. Lungs clear T/O to Auscultation. Patient confirms NPO status and agrees with scheduled surgery. Pre-Op teaching done. Pt verbalizes understanding. Patient reports completing Chlorhexadine shower X5 prior to admission to hospital.
--- NOTE | 2022-11-04 14:48 | NUR ---
11/04/22 1448 Isamar Roca SPINAL COMPLETED UPON ENTRY TO OR. HOWEVER, WHILE PREPPING AND DRAPING PATIENT, SHE HAD FEELING IN HER LOWER EXTREMITIES. DR. AN INTUBATED BEFORE INCISION WAS MADE.
--- NOTE | 2022-11-04 17:45 | NUR ---
POST OP ARRIVAL TO SURGICAL UNIT C/O HIGH PAIN. DISCUSSED PAIN MANAGEMENT. SNACKS GIVEN & WILL MEDICATE. CAREGIVERS AT SIDE.
[2022-11-05 00:43] VITALS: BP 119/65
--- NOTE | 2022-11-05 02:28 | NUR ---
CDL DRIVER observed the bandage of the Pts leg appeared to rubbing and digging in to Pts leg, Rn was notified.
--- NOTE | 2022-11-05 03:56 | NUR ---
SHIFT SUMMARY NO ACUTE CHANGES TO REPORT OVENRIGHT, PT POD 0 LEFT TOTAL KNEE. PT HAS BEEN UP AND AMBULATING. TOLERATING PO INTAKE. PT PAIN IS WELL CONTROLLED WITH MEDS PER EMAR. POST OP VITALS STABLE. DRESSING C/D/I TO KNEE. PLAN OF CARE UNCHANGED, PLAN IS FOR DC TODAY.
[2022-11-05 04:11] VITALS: BP 127/57
[2022-11-05 04:44] LABS: BASOPHILS ABSOLUTE AUTO 0.03 K/mm3 (0.00-0.23); BASOPHILS PERCENT AUTO 0 % (0-2); EOSINOPHILS ABSOLUTE AUTO 0.01 K/mm3 (0.00-0.68); EOSINOPHILS PERCENT AUTO 0 % (0-6); Hematocrit 34.9 % (33.0-51.0); Hemoglobin 11.4 g/dL (11.5-16.0); IMMATURE GRAN ABSOLUTE AUTO 0.07 K/mm3 (0.00-0.10); IMMATURE GRAN PERCENT AUTO 1 % (0-1); LYMPHOCYTES ABSOLUTE AUTO 1.24 K/mm3 (0.84-5.20); LYMPHOCYTES PERCENT AUTO 10 % (21-46); MONOCYTES ABSOLUTE AUTO 1.04 K/mm3 (0.16-1.47); MONOCYTES PERCENT AUTO 8 % (4-13); Mean Corpuscular HGB 29.8 pg (26.0-34.0); Mean Corpuscular HGB Conc 32.7 g/dL (31.5-36.5); Mean Corpuscular Volume 91 fL (80-100); Mean Platelet Volume 9.2 fL (9.1-12.4); NEUTROPHILS ABSOLUTE AUTO 10.18 K/mm3 (1.96-9.15); NEUTROPHILS PERCENT AUTO 81 % (41-73); Platelet Count 224 K/mm3 (150-400); RDW Coefficient Variation 13.2 % (11.7-14.2); RDW Standard Deviation 43.6 fL (35.1-46.3); Red Blood Cell Count 3.83 M/mm3 (3.80-5.20); White Blood Cell Count 12.57 K/mm3 (4.00-11.30)
[2022-11-05 06:50] LABS: Bun/Creatinine Ratio 21.5 (12.0-20.0); Calcium, Blood 8.9 mg/dL (8.5-10.1); Creatinine, Blood 0.56 mg/dL (0.40-1.00)
[2022-11-05 07:17] VITALS: BP 132/70
[2022-11-05] MEDS ORDERED: Percocet 5-3251 EACH PO (12:02)
--- NOTE | 2022-11-05 12:30 | NUR ---
DISCHARGE PT HAS CLEARED THERAPY, BUT w/ SOME DIFFICULTY. ALLOWED TIME TO REST. C/O NAUSEA BUT DECLINES MEDICATION FOR IT & STATES IT WILL BE BETTER WHEN SHES HOME. PAIN WELL CONTROLLED UNTIL AFTER THERAPY SESSION, BUT ONCE AGAIN JUST WISHES TO GO HOME. EATING, DRINKING, & VOIDING WELL. DRSGS & POLAR PACK SENT w/ PT. SCRIPT SENT YESTERDAY & IS FILLED. ESCORTED OUT VIA W/C.
[2022-11-05 14:06] LABS: Potassium, Blood 4.7 mmol/L (3.5-5.5)
== END 2022-11-05 12:33 | disposition home or self-care (01) ==
LOC: ORSCMMR 11:03 → ORD 12:30 → SURS 17:15 → ORSCMMR 11-05 12:33
PROVIDERS: Orthopaedic Surgery
PROC: 0SRD0JA Replacement of Left Knee Joint with Synthetic Substitute, Uncemented, Open Approach (ICD-10-PCS; principal; 2022-11-04 13:00)
DX: M17.12 Unilateral primary osteoarthritis, left knee (principal); I48.91 Unspecified atrial fibrillation; Z79.01 Long term (current) use of anticoagulants; I10 Essential (primary) hypertension; E78.5 Hyperlipidemia, unspecified; Z79.899 Other long term (current) drug therapy; Z87.891 Personal history of nicotine dependence
CPT/HCPCS: 36415; 73560-LT; 80048; 85025; 97110; 97116; 97162; A9270; C1776; J0171; J0690; J0735; J1100; J1170; J1885; J2250; J2371; J2405; J2704; J2795; J3010; J3370; J7050; J7120

== ENCOUNTER 2022-12-09 14:38 | Emergency (ER) | payer MEDICARE, OTHER ==
[~2022-12-09] VITALS: Ht 160 cm; Wt 84.8 kg
[~2022-12-09 14:38] MED LIST changes: +MUPIROCIN1 G4 TOP; +Percocet 5-3251 EACH PO
[2022-12-09] MEDS ORDERED: FLUTICASONE PRO16 GM (15:24)
[2022-12-09 15:33] LABS: BASOPHILS ABSOLUTE AUTO 0.06 K/mm3 (0.00-0.23); BASOPHILS PERCENT AUTO 1 % (0-2); EOSINOPHILS ABSOLUTE AUTO 0.25 K/mm3 (0.00-0.68); EOSINOPHILS PERCENT AUTO 3 % (0-6); Hematocrit 39.1 % (33.0-51.0); Hemoglobin 12.6 g/dL (11.5-16.0); IMMATURE GRAN ABSOLUTE AUTO 0.02 K/mm3 (0.00-0.10); IMMATURE GRAN PERCENT AUTO 0 % (0-1); LYMPHOCYTES ABSOLUTE AUTO 2.04 K/mm3 (0.84-5.20); LYMPHOCYTES PERCENT AUTO 21 % (21-46); MONOCYTES ABSOLUTE AUTO 0.65 K/mm3 (0.16-1.47); MONOCYTES PERCENT AUTO 7 % (4-13); Mean Corpuscular HGB Conc 32.2 g/dL (31.5-36.5); Mean Corpuscular Volume 90 fL (80-100); Mean Platelet Volume 9.3 fL (9.1-12.4); NEUTROPHILS ABSOLUTE AUTO 6.54 K/mm3 (1.96-9.15); NEUTROPHILS PERCENT AUTO 69 % (41-73); Platelet Count 256 K/mm3 (150-400); RDW Coefficient Variation 13.5 % (11.7-14.2); Red Blood Cell Count 4.34 M/mm3 (3.80-5.20); White Blood Cell Count 9.56 K/mm3 (4.00-11.30)
[2022-12-09 15:52] LABS: Albumin, Blood 3.5 g/dL (3.4-5.0); Albumin/Globulin Ratio 0.9 (0.8-1.8); Bilirubin, Total 0.4 mg/dL (0.1-1.0); Bun/Creatinine Ratio 18.5 (12.0-20.0); Calcium, Blood 9.1 mg/dL (8.5-10.1); Creatinine, Blood 0.81 mg/dL (0.40-1.00); Globulin, Blood 3.9 g/dL (2.2-4.0); Potassium, Blood 3.6 mmol/L (3.5-5.5); Total Protein, Blood 7.4 g/dL (6.4-8.2)
[2022-12-09 17:00] VITALS: BP 155/62
== END 2022-12-09 18:08 | disposition home or self-care (01) ==
LOC: ER 14:38
PROVIDERS: Emergency Medicine
DX: R55 Syncope and collapse (principal); K59.00 Constipation, unspecified; Z96.652 Presence of left artificial knee joint; J45.909 Unspecified asthma, uncomplicated; I10 Essential (primary) hypertension; I48.0 Paroxysmal atrial fibrillation; E78.5 Hyperlipidemia, unspecified; Z88.1 Allergy status to other antibiotic agents; Z88.5 Allergy status to narcotic agent; Z88.2 Allergy status to sulfonamides; Z91.010 Allergy to peanuts; Z79.899 Other long term (current) drug therapy; Z79.01 Long term (current) use of anticoagulants; Z87.891 Personal history of nicotine dependence
CPT/HCPCS: 80053; 84484; 85025; 93005; 93010; 99284-25; A9270

== ENCOUNTER 2023-06-06 11:04 | Emergency (ER) | payer MEDICARE, OTHER ==
[~2023-06-06] VITALS: Ht 152.4 cm; Wt 88.5 kg
[~2023-06-06 11:04] MED LIST changes: +FLUTICASONE PRO16 GM
[2023-06-06 12:20] LABS: BASOPHILS ABSOLUTE AUTO 0.05 K/mm3 (0.00-0.23); BASOPHILS PERCENT AUTO 1 % (0-2); EOSINOPHILS ABSOLUTE AUTO 0.12 K/mm3 (0.00-0.68); EOSINOPHILS PERCENT AUTO 2 % (0-6); Hematocrit 42.6 % (33.0-51.0); IMMATURE GRAN ABSOLUTE AUTO 0.01 K/mm3 (0.00-0.10); IMMATURE GRAN PERCENT AUTO 0 % (0-1); LYMPHOCYTES ABSOLUTE AUTO 2.02 K/mm3 (0.84-5.20); LYMPHOCYTES PERCENT AUTO 34 % (21-46); MONOCYTES ABSOLUTE AUTO 0.52 K/mm3 (0.16-1.47); MONOCYTES PERCENT AUTO 9 % (4-13); Mean Corpuscular HGB 29.3 pg (26.0-34.0); Mean Corpuscular HGB Conc 32.9 g/dL (31.5-36.5); Mean Corpuscular Volume 89 fL (80-100); Mean Platelet Volume 9.4 fL (9.1-12.4); NEUTROPHILS PERCENT AUTO 55 % (41-73); Platelet Count 251 K/mm3 (150-400); RDW Coefficient Variation 13.1 % (11.7-14.2); RDW Standard Deviation 42.6 fL (35.1-46.3); Red Blood Cell Count 4.78 M/mm3 (3.80-5.20); White Blood Cell Count 6.02 K/mm3 (4.00-11.30)
[2023-06-06 12:29] LABS: Bun/Creatinine Ratio 21.2 (12.0-20.0); Calcium, Blood 9.4 mg/dL (8.5-10.1); Creatinine, Blood 0.52 mg/dL (0.40-1.00); Magnesium, Blood 2.1 mg/dL (1.6-2.4)
[2023-06-06 14:00] VITALS: BP 164/86
[2023-06-06] MEDS ORDERED: HYDHCL25 PO (14:02)
== END 2023-06-06 14:45 | disposition home or self-care (01) ==
LOC: ER 11:04
PROVIDERS: Student in an Organized Health Care Education/Training Program
DX: R07.89 Other chest pain (principal); F43.20 Adjustment disorder, unspecified; Z63.4 Disappearance and death of family member; Z88.1 Allergy status to other antibiotic agents; Z88.5 Allergy status to narcotic agent; Z91.010 Allergy to peanuts; Z79.01 Long term (current) use of anticoagulants; Z79.899 Other long term (current) drug therapy; I10 Essential (primary) hypertension; J45.909 Unspecified asthma, uncomplicated; I48.0 Paroxysmal atrial fibrillation; Z87.891 Personal history of nicotine dependence
CPT/HCPCS: 80048; 83735; 84484; 85025; 93005; 93010; 99283-25

== ENCOUNTER 2023-06-19 11:00 | Emergency (ER) | payer MEDICARE, OTHER ==
[~2023-06-19] VITALS: Ht 152.4 cm; Wt 88.5 kg
[~2023-06-19 11:00] MED LIST changes: +HYDHCL25 PO
[2023-06-19] MEDS ORDERED: NS 1,000 ML IV SCH (11:10)
[2023-06-19 11:51] LABS: BASOPHILS ABSOLUTE AUTO 0.06 K/mm3 (0.00-0.23); BASOPHILS PERCENT AUTO 1 % (0-2); EOSINOPHILS ABSOLUTE AUTO 0.06 K/mm3 (0.00-0.68); EOSINOPHILS PERCENT AUTO 1 % (0-6); Hematocrit 37.5 % (33.0-51.0); Hemoglobin 12.4 g/dL (11.5-16.0); IMMATURE GRAN ABSOLUTE AUTO 0.04 K/mm3 (0.00-0.10); IMMATURE GRAN PERCENT AUTO 0 % (0-1); LYMPHOCYTES ABSOLUTE AUTO 1.51 K/mm3 (0.84-5.20); LYMPHOCYTES PERCENT AUTO 13 % (21-46); MONOCYTES ABSOLUTE AUTO 1.04 K/mm3 (0.16-1.47); MONOCYTES PERCENT AUTO 9 % (4-13); Mean Corpuscular HGB 29.2 pg (26.0-34.0); Mean Corpuscular HGB Conc 33.1 g/dL (31.5-36.5); Mean Corpuscular Volume 88 fL (80-100); Mean Platelet Volume 9.5 fL (9.1-12.4); NEUTROPHILS ABSOLUTE AUTO 9.35 K/mm3 (1.96-9.15); NEUTROPHILS PERCENT AUTO 78 % (41-73); Platelet Count 226 K/mm3 (150-400); RDW Coefficient Variation 13.2 % (11.7-14.2); RDW Standard Deviation 42.5 fL (35.1-46.3); Red Blood Cell Count 4.24 M/mm3 (3.80-5.20); White Blood Cell Count 12.06 K/mm3 (4.00-11.30)
[2023-06-19 12:07] LABS: Source, Urine Straight Cath
[2023-06-19 12:09] LABS: Appearance, Urine Cloudy (Clear); Bilirubin, Urine Neg (Neg); Blood, Urine 5+ (Neg); Color, Urine Yellow (P-Yellow); Glucose Qualitative, Urine Neg (Neg); Ketones, Urine 2+ (Neg); Leukocyte Esterase, Urine 3+ (Neg); Nitrite, Urine Pos (Neg); Protein, Urine 3+ (Neg); Urobilinogen, Urine NORM (Normal)
[2023-06-19 12:13] LABS: Albumin, Blood 3.5 g/dL (3.4-5.0); Albumin/Globulin Ratio 0.9 (0.8-1.8); Bilirubin, Total 0.6 mg/dL (0.1-1.0); Bun/Creatinine Ratio 19.1 (12.0-20.0); Calcium, Blood 9.2 mg/dL (8.5-10.1); Creatinine, Blood 0.58 mg/dL (0.40-1.00); Globulin, Blood 3.7 g/dL (2.2-4.0); Total Protein, Blood 7.2 g/dL (6.4-8.2)
[2023-06-19 12:15] LABS: Bacteria Many /hpf; Red Blood Cells, Urine 25-50 /hpf (0-2); Squamous Epithelial Cells Few /hpf (Few); White Blood Cells, Urine TNTC /hpf (0-5)
[2023-06-19 12:16] LABS: Transitional Epithelial Cells Rare /hpf (0-Rare)
[2023-06-19 12:30] VITALS: BP 152/57
[2023-06-19] MEDS ORDERED: CefTRIAXone Sodium 1,000 MG in NS 100 ML IV ONE (12:45)
[2023-06-19] MEDS ORDERED: CEPH500 PO (12:46)
== END 2023-06-19 14:13 | disposition home or self-care (01) ==
LOC: ER 11:00
PROVIDERS: Emergency Medicine
DX: R55 Syncope and collapse (principal); E86.0 Dehydration; N39.0 Urinary tract infection, site not specified; E87.1 Hypo-osmolality and hyponatremia; Z87.891 Personal history of nicotine dependence; I10 Essential (primary) hypertension; E78.5 Hyperlipidemia, unspecified; J45.909 Unspecified asthma, uncomplicated; M19.90 Unspecified osteoarthritis, unspecified site; Z86.73 Personal history of transient ischemic attack (TIA), and cerebral infarction without residual deficits; Z88.5 Allergy status to narcotic agent; Z88.2 Allergy status to sulfonamides; Z88.1 Allergy status to other antibiotic agents; Z91.010 Allergy to peanuts; Z88.8 Allergy status to other drugs, medicaments and biological substances
CPT/HCPCS: 80053; 81001; 84484; 85025; 87077; 87086; 87186; 93005; 93010; 96360; 96361; 99284-25; J7030

== ENCOUNTER → 2023-06-21 | Outpatient (CLI) | payer MEDICARE, OTHER ==
[~2023-06-21] MED LIST changes: +CEPH500 PO
== END | disposition home or self-care (01) ==
LOC: LAB 11:06 → LAB SHORT 11:06
DX: R30.0 Dysuria (principal)
CPT/HCPCS: 87086

== ENCOUNTER → 2023-08-04 | Outpatient (CLI) | payer MEDICARE, OTHER | END | disposition home or self-care (01) | LOC: LAB SHORT 10:21 → LAB 10:21 | DX: R30.0 Dysuria (principal) | CPT/HCPCS: 87077; 87086; 87186 ==

== ENCOUNTER → 2023-10-04 | Outpatient (CLI) | payer MEDICARE, OTHER | END | disposition home or self-care (01) | LOC: LAB 13:26 → LAB SHORT 13:26 | DX: R30.0 Dysuria (principal) | CPT/HCPCS: 87077; 87086; 87186 ==

== ENCOUNTER → 2024-01-09 | Outpatient (CLI) | payer MEDICARE, OTHER | END | disposition home or self-care (01) | LOC: LAB 13:41 → LAB SHORT 13:41 | DX: R30.0 Dysuria (principal) | CPT/HCPCS: 87086 ==

== ENCOUNTER 2024-05-10 18:35 | Emergency (ER) | payer MEDICARE, OTHER ==
[~2024-05-10] VITALS: Ht 157.5 cm; Wt 90.7 kg
[2024-05-10 19:09] LABS: BASOPHILS ABSOLUTE AUTO 0.06 K/mm3 (0.00-0.23); BASOPHILS PERCENT AUTO 1 % (0-2); EOSINOPHILS PERCENT AUTO 3 % (0-6); Hematocrit 39.1 % (33.0-51.0); Hemoglobin 13.2 g/dL (11.5-16.0); IMMATURE GRAN ABSOLUTE AUTO 0.01 K/mm3 (0.00-0.10); IMMATURE GRAN PERCENT AUTO 0 % (0-1); LYMPHOCYTES ABSOLUTE AUTO 2.26 K/mm3 (0.84-5.20); LYMPHOCYTES PERCENT AUTO 36 % (21-46); MONOCYTES ABSOLUTE AUTO 0.61 K/mm3 (0.16-1.47); MONOCYTES PERCENT AUTO 10 % (4-13); Mean Corpuscular HGB 30.2 pg (26.0-34.0); Mean Corpuscular HGB Conc 33.8 g/dL (31.5-36.5); Mean Corpuscular Volume 90 fL (80-100); NEUTROPHILS ABSOLUTE AUTO 3.16 K/mm3 (1.96-9.15); NEUTROPHILS PERCENT AUTO 50 % (41-73); Platelet Count 260 K/mm3 (150-400); RDW Standard Deviation 42.6 fL (35.1-46.3); Red Blood Cell Count 4.37 M/mm3 (3.80-5.20)
[2024-05-10 19:40] LABS: Albumin, Blood 3.8 g/dL (3.4-5.0); Bilirubin, Total 0.4 mg/dL (0.1-1.0); Bun/Creatinine Ratio 28.9 (12.0-20.0); Calcium, Blood 9.2 mg/dL (8.5-10.1); Creatinine, Blood 0.59 mg/dL (0.40-1.00); Globulin, Blood 3.8 g/dL (2.2-4.0); Total Protein, Blood 7.6 g/dL (6.4-8.2)
[2024-05-10 20:29] LABS: Source, Urine Clean Catch
[2024-05-10 20:37] LABS: Appearance, Urine Clear (Clear); Bilirubin, Urine Neg (Neg); Blood, Urine Neg (Neg); Color, Urine Yellow (P-Yellow); Glucose Qualitative, Urine Neg (Neg); Ketones, Urine Neg (Neg); Leukocyte Esterase, Urine Neg (Neg); Nitrite, Urine Neg (Neg); Protein, Urine Neg (Neg); Specific Gravity, Urine 1.005 (1.003-1.022); Urobilinogen, Urine NORM (Normal)
[2024-05-10] MEDS ORDERED: ASPIR 8181 M1 PO (23:53)
[2024-05-11] MEDS ORDERED: Aspirin 81 MG Chew PO ONE (00:05)
[2024-05-11 03:30] VITALS: BP 144/67
== END 2024-05-11 03:36 | disposition home or self-care (01) ==
LOC: ER 18:35
PROVIDERS: Physician Assistant
DX: R29.818 Other symptoms and signs involving the nervous system (principal); R42 Dizziness and giddiness; I10 Essential (primary) hypertension; E78.5 Hyperlipidemia, unspecified; I48.0 Paroxysmal atrial fibrillation; J45.909 Unspecified asthma, uncomplicated; H54.8 Legal blindness, as defined in USA; Z86.73 Personal history of transient ischemic attack (TIA), and cerebral infarction without residual deficits; Z87.891 Personal history of nicotine dependence; Z88.1 Allergy status to other antibiotic agents; Z88.8 Allergy status to other drugs, medicaments and biological substances; Z88.5 Allergy status to narcotic agent; Z91.010 Allergy to peanuts; Z88.2 Allergy status to sulfonamides; Z79.01 Long term (current) use of anticoagulants; Z79.899 Other long term (current) drug therapy
CPT/HCPCS: 70450; 70496; 70498; 80053; 81003; 85025; 93005; 93010; 99284-25; A9270; Q9967

== ENCOUNTER → 2024-10-18 | Outpatient (CLI) | payer MEDICARE, OTHER ==
[~2024-10-18] MED LIST changes: +ASPIR 8181 M1 PO
[2024-10-18 20:42] LABS: Bacterial Vaginosis PCR Negative (NEGATIVE); Candida Group, PCR NOT DETECTED (NOT DETECT); Candida glabrata-krusei, PCR NOT DETECTED (NOT DETECT)
== END ==
LOC: LAB SHORT 18:08 → LAB 18:08
DX: N89.8 Other specified noninflammatory disorders of vagina (principal); R30.0 Dysuria
CPT/HCPCS: 81515; 87086